=== PATIENT | female | born 1955 | race Caucasian/White ===

== ENCOUNTER → 2018-05-20 07:20 | Outpatient (CLI) | payer OTHER, SELFPAY ==
[2018-05-20 08:29] LABS: Appearance Urine UA CLEAR; Bilirubin Urine UA NEGATIVE (NEGATIVE); Color Urine UA YELLOW; Glucose Urine UA NEGATIVE (Normal); Ketones Urine UA NEGATIVE (NEGATIVE); Leukocyte Esterase Urine UA NEGATIVE (NEGATIVE); Nitrite Urine UA Negative (Negative); Occult Blood Urine UA NEGATIVE (Negative); Protein Urine UA NEGATIVE (Negative); Specific Gravity Urine UA 1.015 (1.000-1.035); Urobilinogen Urine UA 0.2 E.U./dL (0.2)
[2018-05-20 08:50] LABS: Add Manual Diff / Slide Review NO; Eosinophils Percent Auto 4.8 % (2-4); Hematocrit 36.2 % (36-46); Hemoglobin 11.8 g/dL (12.0-16.0); Lymphocytes Percent Auto 37.4 % (25-40); Mean Corpuscular HGB Conc 32.6 % (30-36); Mean Corpuscular Hemoglobin 26.9 PG (26-34); Mean Corpuscular Volume 82.3 fL (80-100); Monocytes Percent Auto 6.3 % (3-14); Neutrophils Absolute Auto 3500 /uL (3000-5900); Neutrophils Percent Auto 50.5 % (50-75); Platelet Count 312 X10^3/uL (150-400); Red Cell Distribution Width 14.6 % (11.6-14.8); White Blood Cell Count 6.9 X10^3/uL (4.5-11.0)
[2018-05-20 09:17] LABS: Alanine Aminotransferase 29 IU/L (9-52); Albumin 4.4 g/dL (3.5-5.0); Albumin Globulin Ratio 1.3 (1.0-2.8); Alkaline Phosphatase 110 U/L (38-126); Aspartate Aminotransferase 28 IU/L (14-36); BUN Creatinine Ratio 17.8 (6-22); Bilirubin Total 0.7 mg/dL (0.2-1.3); Blood Urea Nitrogen 16 mg/dL (7-17); Calcium 9.5 mg/dL (8.4-10.2); Carbon Dioxide 30 mmol/L (22-32); Chloride 100 mmol/L (98-107); Cholesterol 188 mg/dL (140-199); Estimated Glomerular Filt Rate > 60.0 mL/min (>60); Globulin 3.3 g/dL (1.7-4.1); Glucose 128 mg/dL (80-110); HDL Cholesterol 46 mg/dL (40-60); HEMOLYSIS < 15 (0-50); LDL Cholesterol Calculated 120 mg/dL (<100); Sodium 142 mmol/L (137-145); Total Protein 7.7 g/dL (6.3-8.2); Triglycerides 110 mg/dL (35-150)
[2018-05-20 09:35] LABS: Thyroid Stimulating Hormone 2.64 uIU/mL (0.47-4.68)
== END ==
PROVIDERS: PCP Family Medicine; Visit Provider Family Medicine
DX: Z78.0 Asymptomatic menopausal state (principal); Z51.81 Encounter for therapeutic drug level monitoring; F41.8 Other specified anxiety disorders; G25.81 Restless legs syndrome; Z87.19 Personal history of other diseases of the digestive system
CPT/HCPCS: 36415; 80053; 80061; 81003; 84443; 85025

== ENCOUNTER 2018-05-30 17:25 | Emergency (ER) | payer OTHER, SELFPAY ==
[2018-05-30] VITALS (9 sets, daily range): BP systolic 92–130; BP diastolic 63–80; PULSE 97–114; RESP 8–22; TEMP 36.3; O2SAT 97–100
[2018-05-30 18:37] LABS: Add Manual Diff / Slide Review NO; Basophils Percent Auto 0.8 % (0-2); Eosinophils Percent Auto 2.4 % (2-4); Hematocrit 32.7 % (36-46); Hemoglobin 10.9 g/dL (12.0-16.0); Lymphocytes Percent Auto 23.9 % (25-40); Mean Corpuscular HGB Conc 33.3 % (30-36); Mean Corpuscular Volume 81.2 fL (80-100); Monocytes Percent Auto 5.6 % (3-14); Neutrophils Absolute Auto 8900 /uL (3000-5900); Neutrophils Percent Auto 67.3 % (50-75); Platelet Count 353 X10^3/uL (150-400); Red Blood Cell Count 4.03 X10^6/uL (4.0-5.2); Red Cell Distribution Width 14.6 % (11.6-14.8); White Blood Cell Count 13.2 X10^3/uL (4.5-11.0)
[2018-05-30 18:47] LABS: Alanine Aminotransferase 30 IU/L (9-52); Albumin 4.3 g/dL (3.5-5.0); Albumin Globulin Ratio 1.4 (1.0-2.8); Alkaline Phosphatase 86 U/L (38-126); Aspartate Aminotransferase 36 IU/L (14-36); BUN Creatinine Ratio 35.6 (6-22); Bilirubin Total 0.9 mg/dL (0.2-1.3); Blood Urea Nitrogen 32 mg/dL (7-17); Calcium 9.8 mg/dL (8.4-10.2); Carbon Dioxide 28 mmol/L (22-32); Chloride 99 mmol/L (98-107); Estimated Glomerular Filt Rate > 60.0 mL/min (>60); Glucose 167 mg/dL (80-110); HEMOLYSIS 34 (0-50); Lipase 172 U/L (23-300); Potassium 4.2 mmol/L (3.4-5.1); Sodium 139 mmol/L (137-145); Total Protein 7.3 g/dL (6.3-8.2)
[2018-05-30 18:51] LABS: INR 1.2 (0.9-1.3); Prothrombin Time 12.9 SECONDS (10.1-12.7)
--- NOTE | 2018-05-30 18:52 | ED_ITS ---
HPI - GI Bleed General Chief complaint: GI Bleed Stated complaint: VOMITING BLOOD Time Seen by Provider: 05/30/18 18:32 Source: patient Mode of arrival: ambulatory Limitations: no limitations History of Present Illness HPI Narrative: Patient is a 63-year-old female with history of alcoholism and significant NSAID use presenting with hematemesis. She said around 3:00 p.m. this afternoon she felt queasy dizzy lightheaded overall did not feel well. She then started vomiting all large amount of clotted blood. The brought some in a was all over his car. She has been having black tarry stools for the last 1-2 days. She has been sober for the last 2 years. She does have a history of cirrhosis. She takes NSAIDs daily for carpal tunnel. MD complaint: gross hematemesis Related Data Home Medications Medication Instructions Recorded Confirmed [MirapeX] #0 12/27/09 Previous Rx's Medication Instructions Recorded bupropion HCl XL 300 mg 24 hr 300 mg PO QAM #90 tab 05/22/18 tablet, extended release conj estrogen-medroxyprogesterone 1 tab PO DAILY #90 tab 05/22/18 0.625 mg-2.5 mg tablet gabapentin 300 mg capsule 300 mg PO TID #270 cap 05/22/18 hydrochlorothiazide 25 mg tablet 25 mg PO DAILY #90 tab 05/22/18 hydroxyzine HCl 25 mg tablet 25 mg PO DAILY #90 tab 05/22/18 norethindrone acetate-ethinyl 1 tab PO DAILY #84 tab 05/22/18 estradiol 0.5 mg-2.5 mcg tablet ropinirole 1 mg tablet 2 mg PO BEDTIME #180 tab 05/22/18 trazodone 100 mg tablet 200 mg PO BEDTIME #180 tab 05/22/18 Allergies Allergy/AdvReac Type Severity Reaction Status Date / Time No Known Drug Allergies Allergy Verified 05/30/18 17:46 Review of Systems Review of Systems All systems reviewed & are unremarkable except as noted in HPI and below Constitutional Reports fatigue and Denies fever(s) Eyes Denies change in vision, Denies eye discharge, Denies irritation and Denies loss of vision ENT Ears, Nose, Mouth, and Throat: Denies change in voice, Denies neck pain and Denies sore throat Cardiovascular Denies chest pain, Reports lightheadedness and Denies dyspnea on exertion Respiratory Denies cough, Denies dyspnea on exertion and Denies wheezing Gastrointestinal Gastrointestinal: Reports as per HPI Musculoskeletal Denies neck pain Integumentary/Breasts Denies pruritus, Denies erythema, Denies rash and Denies wounds Neurologic Denies loss of vision Endocrine Reports fatigue Allergic/Immunologic Denies wheezing PFSH Medical History Alcoholic cirrhosis (Acute) Alcoholism (Acute) Carpal tunnel syndrome (Acute) Anxiety (Inactive ~2013) Carpal tunnel syndrome (Inactive) Depression (Inactive ~1999) Plantar warts (Inactive ~1979) Restless leg syndrome (Inactive) Shoulder pain (Inactive ~1994) Sleep apnea (Inactive ~2000) Substance abuse (Inactive ~1974) Surgical History H/O section (Inactive) H/O shoulder surgery (Inactive) History of carpal tunnel surgery (Inactive) History of cholecystectomy (Inactive) History of tubal ligation (Inactive) Status post surgery (Inactive 12/27/09) Family History Father Diabetes mellitus Restless leg syndrome History of open heart surgery Mother Pacemaker Heart disease Grandmother Breast cancer Grandfather Diabetes mellitus Grandfather Alcohol abuse Grandmother Old age Social History Smoking Status: Never smoker alcohol intake: former substance use type: does not use Exam Initial Vital Signs Initial Vital Signs: Vital Signs Temperature 97.4 F L 05/30/18 17:43 Pulse Rate 114 H 05/30/18 17:43 Respiratory Rate 16 05/30/18 17:43 Blood Pressure 130/80 H 05/30/18 17:43 Pulse Oximetry 98 05/30/18 17:43 Const General: cooperative and comfortable [facility] Head: normocephalic and atraumatic Mouth: moist mucous membranes Teeth and gingiva: dentition normal Chest Chest: normal inspection of the chest Resp Effort & Inspection: normal respiratory effort, able to speak in complete sentences, no respiratory distress and no use of accessory muscles Auscultation: clear to auscultation bilaterally, no rales, no rhonchi and no wheezes Cardio Rhythm: regular rhythm Heart Sounds: S1 normal and S2 normal GI Inspection: non-distended Palpation: soft, no hepatosplenomegaly, No guarding, No pulsatile mass and No tender Auscultation: normal bowel sounds Rectal Exam: normal sphincter tone and heme positive stool Skin General: no rashes or lesions noted and No jaundice Lesions: no lesions Course Orders Ordered: ED Orders 05/30/18 18:29 Complete Blood Count AUTO DIFF Stat Comprehensive Metabolic Panel Stat Lactate (Lactic Acid) Stat Lipase Stat Partial Thromboplastin Time Stat Prothrombin Time INR Stat Type and Screen Stat Discontinued Medications Octreotide Acetate 500 mcg/ (Sodium Chloride) 101 mls @ 5.05 mls/hr IV CONT JANETT Last Infusion: 05/30/18 23:42 Dose: 25 mcg/hr, 5.05 mls/hr Admin: 05/30/18 19:09 Dose: 25 mcg/hr, 5.05 mls/hr Pantoprazole Sodium 80 mg/ (Sodium Chloride) 100 mls @ 10 mls/hr IV CONT JANETT Last Infusion: 05/30/18 23:40 Dose: 8 mg/hr, 10 mls/hr Admin: 05/30/18 19:09 Dose: 8 mg/hr, 10 mls/hr Lorazepam (Ativan) 0.5 mg IV NOW ONE Stop: 05/30/18 22:31 Last Admin: 05/30/18 22:33 Dose: 0.5 mg Octreotide Acetate (Sandostatin) 50 mcg IV NOW ONE Stop: 05/30/18 18:43 Last Admin: 05/30/18 19:16 Dose: 50 mcg Ondansetron HCl (Zofran) 4 mg IV NOW ONE Stop: 05/30/18 18:43 Last Admin: 05/30/18 19:09 Dose: 4 mg Pantoprazole Sodium (Protonix) 40 mg IV NOW ONE Stop: 05/30/18 18:43 Last Admin: 05/30/18 19:09 Dose: 40 mg Consultations Consultation #1: Lisandro Luis, has been updated patient's symptoms and test results. He has made arrangements for patient to be transferred to [facility]. Dr. Rosales accepting at [facility] Time: 20:20 Vital Signs - 8 hr 05/30/18 18:33 05/30/18 19:30 05/30/18 20:15 Pulse Rate 108 H 104 H 97 H Respiratory Rate 14 22 16 Blood Pressure [Left Arm] 114/71 127/77 H 125/67 H Pulse Oximetry 99 100 100 05/30/18 20:45 05/30/18 21:10 05/30/18 21:30 Pulse Rate 102 H 106 H 104 H Respiratory Rate 8 L 18 17 Blood Pressure [Left Arm] 116/73 103/68 92/71 Pulse Oximetry 97 98 97 05/30/18 22:00 05/30/18 22:30 Pulse Rate 102 H 105 H Respiratory Rate 20 16 Blood Pressure [Left Arm] 122/63 H 125/78 H Pulse Oximetry 98 99 MDM - GI Bleed Lab Data Result diagrams: 05/30/18 18:29 05/30/18 18:29 Lab Results 05/30/18 05/30/18 05/30/18 Range/Units 18:29 18:29 18:29 WBC 13.2 H (4.5-11.0) X10^3/uL RBC 4.03 (4.0-5.2) X10^6/uL Hgb 10.9 L (12.0-16.0) g/dL Hct 32.7 L (36-46) % MCV 81.2 (80-100) fL MCH 27.0 (26-34) PG MCHC 33.3 (30-36) % RDW 14.6 (11.6-14.8) % Plt Count 353 (150-400) X10^3/uL Neut % (Auto) 67.3 (50-75) % Lymph % (Auto) 23.9 L (25-40) % Falls % (Auto) 5.6 (3-14) % Eos % (Auto) 2.4 (2-4) % Baso % (Auto) 0.8 (0-2) % Neut # (Auto) 8900 H (3148-0787) /uL PT (10.1-12.7) SECONDS INR (0.9-1.3) APTT (26.4-36.2) SECONDS Sodium 139 (137-145) mmol/L Potassium 4.2 (3.4-5.1) mmol/L Chloride 99 (98-107) mmol/L Carbon Dioxide 28 (22-32) mmol/L BUN 32 H (7-17) mg/dL Creatinine 0.90 (0.52-1.04) mg/dL Estimated GFR > 60.0 (>60) mL/min BUN/Creatinine Ratio 35.6 H (6-22) Glucose 167 H (80-110) mg/dL Lactate (0.7-2.1) mmol/L Calcium 9.8 (8.4-10.2) mg/dL Total Bilirubin 0.9 (0.2-1.3) mg/dL AST 36 (14-36) IU/L ALT 30 (9-52) IU/L Alkaline Phosphatase 86 (38-126) U/L Total Protein 7.3 (6.3-8.2) g/dL Albumin 4.3 (3.5-5.0) g/dL Globulin 3.0 (1.7-4.1) g/dL Albumin/Globulin Ratio 1.4 (1.0-2.8) Lipase 172 (23-300) U/L Blood Type O Positive Antibody Screen Negative 05/30/18 05/30/18 Range/Units 18:29 18:29 WBC (4.5-11.0) X10^3/uL RBC (4.0-5.2) X10^6/uL Hgb (12.0-16.0) g/dL Hct (36-46) % MCV (80-100) fL MCH (26-34) PG MCHC (30-36) % RDW (11.6-14.8) % Plt Count (150-400) X10^3/uL Neut % (Auto) (50-75) % Lymph % (Auto) (25-40) % Falls % (Auto) (3-14) % Eos % (Auto) (2-4) % Baso % (Auto) (0-2) % Neut # (Auto) (3831-6466) /uL PT 12.9 H (10.1-12.7) SECONDS INR 1.2 (0.9-1.3) APTT 26 L (26.4-36.2) SECONDS Sodium (137-145) mmol/L Potassium (3.4-5.1) mmol/L Chloride (98-107) mmol/L Carbon Dioxide (22-32) mmol/L BUN (7-17) mg/dL Creatinine (0.52-1.04) mg/dL Estimated GFR (>60) mL/min BUN/Creatinine Ratio (6-22) Glucose (80-110) mg/dL Lactate 1.4 (0.7-2.1) mmol/L Calcium (8.4-10.2) mg/dL Total Bilirubin (0.2-1.3) mg/dL AST (14-36) IU/L ALT (9-52) IU/L Alkaline Phosphatase (38-126) U/L Total Protein (6.3-8.2) g/dL Albumin (3.5-5.0) g/dL Globulin (1.7-4.1) g/dL Albumin/Globulin Ratio (1.0-2.8) Lipase (23-300) U/L Blood Type Antibody Screen MDM Narrative Medical decision making narrative: Previous hemoglobin on 05/20/2018 11.8 and hematocrit 36.2. Today slightly decreased 10.9 and 32.7 respectively. She has no further episodes of vomiting in the ED. She remained slightly tachycardic blood pressure has remained stable. She is being transferred to [facility] unable to fix variceal bleeding if that is what this is. However due to the improvement of vomiting I suspect that this is probably more from NSAIDs. She also has elevated BUN compared to creatinine suggestive of upper GI bleed. Discharge Plan Departure Patient Disposition: [facility] Clinical Impression: Acute GI bleeding Discharge Date/Time: 05/30/18 23:06 Interventions: ED Discharge Assessment Last Done: 05/30/18 23:06 Prescriptions: No Action bupropion HCl 300 mg tablet extended release 24 hr 300 mg PO QAM Qty: 90 RF: 3 norethindrone ac-eth estradiol 0.5-2.5 mg-mcg tablet 1 tab PO DAILY Qty: 84 RF: 1 gabapentin [Neurontin] 300 mg capsule 300 mg PO TID Qty: 270 RF: 3 hydrochlorothiazide 25 mg tablet 25 mg PO DAILY Qty: 90 RF: 3 hydroxyzine HCl 25 mg tablet 25 mg PO DAILY Qty: 90 RF: 3 ropinirole 1 mg tablet 2 mg PO BEDTIME Qty: 180 RF: 3 trazodone 100 mg tablet 200 mg PO BEDTIME Qty: 180 RF: 3 conj estrog-medroxyprogest felipe [Prempro] 0.625-2.5 mg tablet 1 tab PO DAILY Qty: 90 RF: 0 [MirapeX] Qty: 0 RF: 0
[2018-05-30 18:54] LABS: Lactate (Lactic Acid) 1.4 mmol/L (0.7-2.1); PTT Partial Thromboplastin Tim 26 SECONDS (26.4-36.2)
[2018-05-30] MEDS: ONDANSETRON 4 MG/2 ML INJ IV (19:09)
[2018-05-30] MEDS: OCTREOTIDE 500 MCG in SODIUM CHLORIDE 0.9% 100 ML 5.05 ML IV (19:09)
[2018-05-30] MEDS: PANTOPRAZOLE 80 MG in SODIUM CHLORIDE 0.9% 100 ML 10 ML IV (19:09)
[2018-05-30] MEDS: PANTOPRAZOLE 40 MG VIAL IV (19:09)
[2018-05-30] MEDS: OCTREOTIDE 100 MCG/ML VIAL 50 MCG IV (19:16)
[2018-05-30] MEDS: LORazepam 2 MG/ML SYRINGE 0.5 MG IV (22:33)
== END 2018-05-30 23:06 | disposition short-term general hospital (02) ==
PROVIDERS: Emergency Medicine; Emergency Provider Emergency Medicine; Family Provider Family Medicine; PCP Family Medicine
DX: K92.2 Gastrointestinal hemorrhage, unspecified (principal)
CPT/HCPCS: 36591; 80053; 82272; 83605; 83690; 85025; 85610; 85730; 86850; 86900; 86901; 96365; 96366; 96368; 96375; 99285; C9113; J2060; J2354; J2405

== ENCOUNTER → 2018-10-25 08:24 | Outpatient (CLI) | payer OTHER, SELFPAY ==
[2018-10-25 09:18] LABS: Add Manual Diff / Slide Review NO; Basophils Percent Auto 1.3 % (0-2); Eosinophils Percent Auto 3.5 % (2-4); Hematocrit 37.8 % (36-46); Hemoglobin 12.3 g/dL (12.0-16.0); Lymphocytes Percent Auto 44.1 % (25-40); Mean Corpuscular HGB Conc 32.6 % (30-36); Mean Corpuscular Hemoglobin 26.6 PG (26-34); Mean Corpuscular Volume 81.6 fL (80-100); Monocytes Percent Auto 6.5 % (3-14); Neutrophils Absolute Auto 2500 /uL (1500-7000); Neutrophils Percent Auto 44.6 % (50-75); Platelet Count 386 X10^3/uL (150-400); Red Blood Cell Count 4.63 X10^6/uL (4.0-5.2); Red Cell Distribution Width 17.1 % (11.6-14.8); White Blood Cell Count 5.5 X10^3/uL (4.5-11.0)
[2018-10-25 09:30] LABS: Alanine Aminotransferase 30 IU/L (9-52); Albumin 4.8 g/dL (3.5-5.0); Albumin Globulin Ratio 1.4 (1.0-2.8); Alkaline Phosphatase 96 U/L (38-126); Aspartate Aminotransferase 32 IU/L (14-36); BUN Creatinine Ratio 12.5 (6-22); Blood Urea Nitrogen 10 mg/dL (7-17); Carbon Dioxide 31 mmol/L (22-32); Chloride 101 mmol/L (98-107); Estimated Glomerular Filt Rate > 60.0 mL/min (>60); Globulin 3.5 g/dL (1.7-4.1); Glucose 122 mg/dL (80-110); HEMOLYSIS < 15 (0-50); Hemoglobin A1C% w Est Avg Glu 5.8 % (4.0-6.0); Potassium 3.8 mmol/L (3.4-5.1); Sodium 147 mmol/L (137-145); Total Protein 8.3 g/dL (6.3-8.2)
[2018-10-25 10:02] LABS: Ferritin 64.8 ng/mL (11.1-264)
[2018-10-25 11:35] LABS: HEMOLYSIS < 15 (0-50); Iron 79 ug/dL (37-170)
[2018-10-25 11:48] LABS: Percent Iron Saturation 29 % (15-50); Total Iron Binding Capacity 272 ug/dL (265-497); Transferrin 213 mg/dL (206-381)
== END ==
PROVIDERS: PCP Family Medicine; Visit Provider Family Medicine
DX: R73.9 Hyperglycemia, unspecified (principal); D50.0 Iron deficiency anemia secondary to blood loss (chronic); E61.1 Iron deficiency
CPT/HCPCS: 36415; 80053; 82728; 83036; 83540; 83550; 85025

== ENCOUNTER → 2019-02-26 08:13 | Outpatient (CLI) | payer OTHER, SELFPAY ==
--- NOTE | 2019-02-26 08:16 | DI.RAD.S_ITS ---
PROCEDURE: XR KNEE LT 3V INDICATIONS: left knee pain TECHNIQUE: 3 views of the knee were acquired. COMPARISON: None. FINDINGS: Bones: No fractures or dislocations. No suspicious bony lesions. Soft tissues: No joint effusion. No suspicious soft tissue calcifications. IMPRESSION: Minimal medial compartment joint space narrowing, consistent with a small degree of osteoarthritis in that area. Note is also made of distal quadriceps tendon insertion spurring on the superior margin of the patella. Dictated by: Elliot Grier M.D. on 02/26/2019 at 10:11 Approved by: Elliot Grier M.D. on 02/26/2019 at 10:12
--- NOTE | 2019-02-26 08:16 | DI.RAD.S_ITS ---
PROCEDURE: XR HIP W PEL IF DONE LT 2V INDICATIONS: hip pain TECHNIQUE: AP pelvis with lateral view(s) of the left hip(s). COMPARISON: [facility], , CT ABDOMEN W/WO CONTRAST, 12/31/2003, 9:07. FINDINGS: Bones: No fractures or dislocations but there is moderate bilateral hip joint osteoarthritis greater on the left than the right with relatively prominent osteophytic spurring at the lateral border of the acetabulum.. Pelvic ring appears intact. No suspicious bony lesions. Soft tissues: The visualized bowel gas pattern is normal. No suspicious soft tissue calcifications. IMPRESSION: No acute trauma found that there is moderate bilateral hip joint osteoarthritis with asymmetric prominence on the left. Dictated by: Elliot Grier M.D. on 02/26/2019 at 10:10 Approved by: Elliot Grier M.D. on 02/26/2019 at 10:11
== END ==
PROVIDERS: PCP Family Medicine; Visit Provider Family Medicine
DX: M25.562 Pain in left knee (principal); M25.552 Pain in left hip; M16.0 Bilateral primary osteoarthritis of hip
CPT/HCPCS: 73502; 73562

== ENCOUNTER 2019-10-08 12:46 | Emergency (ER) | payer OTHER, SELFPAY ==
[2019-10-08 12:51] VITALS: BP 149/77; PULSE 62; RESP 15; TEMP 36.4; O2SAT 100; BMI 32.4
[2019-10-08 13:55] VITALS: BP 139/69; PULSE 54; RESP 14; O2SAT 99
[2019-10-08 14:30] VITALS: BP 131/67; PULSE 57; RESP 17; O2SAT 100
[2019-10-08 14:53] LABS: Add Manual Diff / Slide Review NO; Basophils Absolute Auto 100 /uL (0-100); Eosinophils Absolute Auto 300 /uL (0-450); Eosinophils Percent Auto 4.7 % (2-4); Hemoglobin 10.8 g/dL (12.0-16.0); Lymphocytes Absolute Auto 2600 /uL (1100-4500); Mean Corpuscular HGB Conc 32.7 % (30-36); Mean Corpuscular Hemoglobin 27.8 PG (26-34); Mean Corpuscular Volume 85.1 fL (80-100); Monocytes Absolute Auto 400 /uL (0-900); Neutrophils Absolute Auto 3100 /uL (1500-7000); Neutrophils Percent Auto 48.3 % (50-75); Platelet Count 319 X10^3/uL (150-400); Red Blood Cell Count 3.88 X10^6/uL (4.0-5.2); White Blood Cell Count 6.5 X10^3/uL (4.5-11.0)
[2019-10-08 14:58] LABS: Blood Urea Nitrogen 12 mg/dL (7-17); Calcium 9.3 mg/dL (8.4-10.2); Carbon Dioxide 28 mmol/L (22-32); Chloride 107 mmol/L (98-107); Estimated Glomerular Filt Rate > 60.0 mL/min (>60); Glucose 85 mg/dL (80-110); HEMOLYSIS < 15 (0-50); Potassium 3.7 mmol/L (3.4-5.1); Sodium 140 mmol/L (137-145)
[2019-10-08 15:00] VITALS: BP 128/97; PULSE 54; RESP 16; O2SAT 100
[2019-10-08 15:10] LABS: Troponin I < 0.012 ng/mL (0.01-0.034)
--- NOTE | 2019-10-08 16:02 | DI.CT.S_ITS ---
PROCEDURE: CT HEAD/BRAIN WO CON INDICATIONS: vertigo TECHNIQUE: Noncontrast 4.5 mm thick angled axial sections acquired from the foramen magnum to the vertex, with coronal and sagittal reformats. For radiation dose reduction, the following was used: automated exposure control, adjustment of mA and/or kV according to patient size. COMPARISON: [facility], CT, HEAD WITHOUT CONTRAST, 09/10/2008, 17:34. FINDINGS: Image quality: Excellent. CSF spaces: Basal cisterns are patent. No extra-axial fluid collections. Ventricles are normal in size and shape. Brain: No midline shift. No intracranial masses or hemorrhage. Mccartney-white matter interface is normal. Skull and face: Calvarium and visualized facial bones are intact, without suspicious lesions. Sinuses: Visualized sinuses and mastoids are clear. IMPRESSION: Unremarkable head CT. No evidence of acute stroke, hemorrhage, or mass. Dictated by: Darvin Ocasio M.D. on 10/08/2019 at 16:31 Approved by: Darvin Ocasio M.D. on 10/08/2019 at 16:32
[2019-10-08] MEDS: SODIUM CHLORIDE 0.9% 1,000 ML 1000 ML IV (16:26)
[2019-10-08] MEDS: MECLIZINE HCL 12.5 MG TABLET 50 MG PO (16:26)
--- NOTE | 2019-10-08 17:15 | ED.DIZZY ---
HPI - Dizziness General Chief Complaint: Dizziness Stated Complaint: dizzy spells,sent from [facility] Time Seen by Provider: 10/08/19 13:42 Source: patient Mode of arrival: Ambulatory History of Present Illness HPI Narrative: Patient comes emergency department complaining of intermittent vertigo, mainly when she bends over or moves her head in certain directions, for the last several days. Patient has had slight nausea occasionally but denies vomiting. no chest pain or shortness breath. No headache. No focal neurologic deficits. No visual changes. Patient states that she has never had vertigo before. She denies lightheadedness or near-syncope. No other complaints this time. She states that right now, symptoms are not too bad, and she has been able to ambulate. Related Data Home Medications Medication Instructions Recorded Confirmed ropinirole 3 - 4 mg PO BEDTIME 10/08/19 10/08/19 Previous Rx's Medication Instructions Recorded bupropion HCl 150 mg 24 hr tablet, 450 mg PO QAM #270 tab 04/03/19 extended release gabapentin 300 mg capsule 300 mg PO TID #270 cap 04/29/19 trazodone 100 mg tablet 200 mg PO BEDTIME #180 tab 04/29/19 hydroxyzine HCl 25 mg tablet 75 mg PO BEDTIME #270 tab 05/01/19 hydrochlorothiazide 25 mg tablet 25 mg PO DAILY #90 tab 06/30/19 meloxicam 15 mg tablet See Rx Instructions PO DAILY #90 07/04/19 tab meclizine 25 mg PO TID PRN #20 tab 10/08/19 Allergies Allergy/AdvReac Type Severity Reaction Status Date / Time No Known Drug Allergies Allergy Verified 10/08/19 12:51 Review of Systems Constitutional Constitutional: Denies chills, Denies fatigue, Denies fever(s), Denies frequent falls, Denies lethargy and Denies weakness Eyes Eyes: Denies change in vision, Denies eye discharge, Denies irritation and Denies loss of vision ENT Ears, Nose, Mouth, and Throat: Denies change in voice, Reports dizziness, Denies neck pain, Denies sore throat and Denies throat swelling Cardiovascular Cardiovascular: Denies chest pain, Denies irregular heart rhythm, Denies lightheadedness, Denies palpitations, Denies dyspnea, Denies dyspnea on exertion and Denies orthopnea Respiratory Respiratory: Denies cough, Denies dyspnea, Denies dyspnea on exertion and Denies wheezing Gastrointestinal Gastrointestinal: Denies abdominal pain, Denies change in bowel habits, Denies diarrhea, Denies nausea and Denies vomiting Genitourinary Genitourinary: Denies hematuria, Denies flank pain, Denies urinary incontinence and Denies urinary urgency Musculoskeletal Musculoskeletal: Denies back pain, Denies muscle weakness, Denies neck pain, Denies numbness and Denies tingling Integumentary/Breasts Skin/Breast: Denies pruritus, Denies erythema, Denies rash and Denies wounds Neurologic Neurologic: Denies behavioral changes, Denies confusion, Reports dizziness, Denies frequent falls, Denies loss of vision, Denies numbness, Denies tingling and Denies weakness Psychiatric Psychiatric: Denies anxiety, Denies behavioral changes, Denies confusion, Denies depression, Denies homicidal ideation and Denies suicidal ideation Endocrine Endocrine: Denies fatigue, Denies flushing and Denies palpitations Hematologic/Lymphatic Hematologic/Lymphatic: Denies easy bruising Allergic/Immunologic Allergic/Immunologic: Denies urticaria, Denies throat swelling and Denies wheezing Patient History Medical History Alcoholic cirrhosis (Chronic) Alcoholism (Chronic) Anxiety (Inactive ~2013) Anxiety (Chronic Unknown) Carpal tunnel syndrome (Inactive) Carpal tunnel syndrome (Chronic ~2011) Cervical radiculopathy due to trauma (Resolved Unknown) Chicken pox (Resolved ~1961) Depression (Inactive ~1999) Depression (Chronic ~1989) Gastric ulcer (Chronic ~2018) Hypertension (Chronic Unknown) Insomnia (Chronic Unknown) Mumps (Resolved ~1964) Plantar warts (Inactive ~1979) Restless leg syndrome (Inactive) Restless leg syndrome (Chronic Unknown) Shoulder pain (Inactive ~1994) Sleep apnea (Inactive ~2000) Substance abuse (Inactive ~1974) Surgical History Anesthesia (Resolved) H/O section (Inactive) H/O shoulder surgery (Inactive) History of carpal tunnel release (Resolved 2014) History of carpal tunnel surgery (Inactive) History of cholecystectomy (Inactive) History of tubal ligation (Inactive) Hx of section (Resolved Unknown) Hx of cholecystectomy (Resolved 2013) Hx of shoulder surgery (Resolved ~2012) Hx of shoulder surgery (Resolved) Status post surgery (Inactive 12/27/09) Family History Father Diabetes mellitus Restless leg syndrome History of open heart surgery Mother Pacemaker Heart disease Grandmother Breast cancer Grandfather Diabetes mellitus Grandfather Alcohol abuse Grandmother Old age Social History marital status: number of children: 2 household members: spouse lives independently: Yes pets and animals: Yes education level: high school occupational status: employed ([employer]) sundar/restorationism: Uatsdin seatbelt use: always water heater temp set < 120 deg: Yes working smoke detector in home: Yes fire extinguisher in home: Yes carbon monox detector in home: Yes firearms in home: Yes Smoking Status: Never smoker second hand exposure: No alcohol intake: former substance use type: does not use during the past year weight has: remained stable well-balanced diet: about half the time daily servings fruits/ve-4 caffeine: Yes eating out: 1-3 times/week Type(s) of exercise: walking and additional (gardening) frequency: 1-2 times per week duration: other (varies) alcohol intake frequency: 0-2 drinks per day Substance Use Type: does not use Exam Initial Vital Signs Initial Vital Signs: Vital Signs Temperature 97.6 F 10/08/19 12:51 Pulse Rate 62 10/08/19 12:51 Respiratory Rate 15 10/08/19 12:51 Blood Pressure 149/77 H 10/08/19 12:51 Pulse Oximetry 100 10/08/19 12:51 Const General: cooperative and well developed Nutritional Appearance: well nourished Orientation: alert, awake, oriented x3 and not confused [facility] Head: normocephalic and atraumatic Ears: external ears normal Nose: external nose normal and No nasal discharge Face and sinus: face symmetric and No dry mucous membranes Mouth: oral mucosae normal and moist mucous membranes Teeth and gingiva: dentition normal Eyes General: appearance normal, both eyes and all related structures Eyelids: eyelids normal Conjunctivae: conjunctivae normal Sclera: sclerae normal Pupils: PERRL EOM: EOM intact bilaterally Other: No nystagmus Neck Neck: normal visual inspection, trachea midline, No lymphadenopathy, No midline deformity and No JVD Lymphatic: No lymphedema Chest Chest: normal inspection of the chest Resp Effort & Inspection: normal respiratory effort, able to speak in complete sentences, no respiratory distress and no use of accessory muscles Auscultation: clear to auscultation bilaterally, no rales, no rhonchi and no wheezes Cardio Rate: regular rate Rhythm: regular rhythm Heart Sounds: no click, no gallops, no murmurs and no rubs Pulses: normal peripheral pulses GI Inspection: non-distended Palpation: soft, no hepatosplenomegaly, No guarding, No pulsatile mass and No tender Back/Spine/Pelvis Back: No CVA tenderness Cervical Spine: cervical ROM normal and No pain with cervical ROM Thoracic/Lumbar Spine: thoracic and lumbar spine normal to inspection Skin General: no rashes or lesions noted, No jaundice and No petechiae Neuro General: alert, oriented x3, gait normal and no focal motor deficits Speech: speech normal Extrem General: full ROM, no clubbing, cyanosis or edema, no pedal edema and no calf tenderness Psych Appearance: well kempt Mental Status: mental status grossly normal Attitude: cooperative Thought Content: normal and suicidality Judgment: judgment good Course Course Course Narrative: The patient was not symptomatic in the emergency department, and was able to ambulate without difficulty to and from the bathroom. She was worked up with labs and CT of the head, which were unremarkable. She was given a dose of meclizine for symptomatic prevention in the emergency department. The patient's vertigo was very much positional and episodic in nature, and given this and the negative head CT, I felt that the etiology was peripheral and not central. I did discuss this with the patient and her spouse, and that this will be a self-limited condition. The patient is stable for discharge home. We have discussed home management of symptoms, as well as the usual indications for return. Orders Ordered: Discontinued Medications Sodium Chloride (Normal Saline 0.9%) 1,000 mls @ 1,000 mls/hr IV BOLUS ONE Stop: 10/08/19 17:02 Last Infusion: 10/08/19 17:50 Dose: 0 mls/hr Documented by: Admin: 10/08/19 16:26 Dose: 1,000 mls/hr Documented by: MARCELL Meclizine HCl (Antivert) 50 mg PO NOW ONE Stop: 10/08/19 16:04 Last Admin: 10/08/19 16:26 Dose: 50 mg Documented by: MARCELL Vital Signs Vital signs: Vital Signs - 8 hr 10/08/19 12:51 10/08/19 13:55 10/08/19 14:30 Temperature 97.6 F Pulse Rate 62 54 L 57 L Respiratory Rate 15 14 17 Blood Pressure 149/77 H Blood Pressure [Right Arm] 139/69 131/67 Pulse Oximetry 100 99 100 10/08/19 15:00 Temperature Pulse Rate 54 L Respiratory Rate 16 Blood Pressure Blood Pressure [Right Arm] 128/97 H Pulse Oximetry 100 MDM - Dizziness Medical Records Attestation: I reviewed the patient's medical records. Lab Data Attestation: I reviewed the patient's lab results. Result diagrams: 10/08/19 14:02 10/08/19 14:02 Labs: Lab Results 10/08/19 10/08/19 Range/Units 14:02 14:02 WBC 6.5 (4.5-11.0) X10^3/uL RBC 3.88 L (4.0-5.2) X10^6/uL Hgb 10.8 L (12.0-16.0) g/dL Hct 33.0 L (36-46) % MCV 85.1 (80-100) fL MCH 27.8 (26-34) PG MCHC 32.7 (30-36) % RDW 15.0 H (11.6-14.8) % Plt Count 319 (150-400) X10^3/uL Neut % (Auto) 48.3 L (50-75) % Lymph % (Auto) 40.0 (25-40) % Montague % (Auto) 6.0 (3-14) % Eos % (Auto) 4.7 H (2-4) % Baso % (Auto) 1.0 (0-2) % Neut # (Auto) 3100 (0996-7115) /uL Lymph # (Auto) 2600 (4789-4330) /uL [place] # (Auto) 400 (0-900) /uL Eos # (Auto) 300 (0-450) /uL Baso # (Auto) 100 (0-100) /uL Sodium 140 (137-145) mmol/L Potassium 3.7 (3.4-5.1) mmol/L Chloride 107 (98-107) mmol/L Carbon Dioxide 28 (22-32) mmol/L BUN 12 (7-17) mg/dL Creatinine 0.80 (0.52-1.04) mg/dL Estimated GFR > 60.0 (>60) mL/min BUN/Creatinine Ratio 15.0 (6-22) Glucose 85 (80-110) mg/dL Calcium 9.3 (8.4-10.2) mg/dL Troponin I < 0.012 (0.01-0.034) ng/mL Urine Dip Bedside Urine Glucose Negative Bedside Urine Bilirubin - Negative Bedside Urine Ketone - Negative Urine Specific Bath 1.010 Bedside Urine pH 6.0 Bedside Urine Protein - Negative Bedside Urine Urobilinogen - Negative Bedside Urine Nitrite - Negative Bedside Urine Leukocytes - Negative Esterase Imaging Data CT scan - head: Radiologist's impression: PROCEDURE: CT HEAD/BRAIN WO CON INDICATIONS: vertigo TECHNIQUE: Noncontrast 4.5 mm thick angled axial sections acquired from the foramen magnum to the vertex, with coronal and sagittal reformats. For radiation dose reduction, the following was used: automated exposure control, adjustment of mA and/or kV according to patient size. COMPARISON: [facility], CT, HEAD WITHOUT CONTRAST, 09/10/2008, 17:34. FINDINGS: Image quality: Excellent. CSF spaces: Basal cisterns are patent. No extra-axial fluid collections. Ventricles are normal in size and shape. Brain: No midline shift. No intracranial masses or hemorrhage. Mccartney-white matter interface is normal. Skull and face: Calvarium and visualized facial bones are intact, without suspicious lesions. Sinuses: Visualized sinuses and mastoids are clear. IMPRESSION: Unremarkable head CT. No evidence of acute stroke, hemorrhage, or mass. Dictated by: Darvin Ocasio M.D. on 10/08/2019 at 16:31 Approved by: Darvin Ocasio M.D. on 10/08/2019 at 16:32 Discharge Plan Departure Patient Disposition: Home Clinical Impression: Vertigo Discharge Date/Time: 10/08/19 17:51 Instructions: DI for Vertigo Activity Restrictions/Additional Instructions: Your labs and CT scan look good. There is no evidence of a serious or emergent condition causing your dizziness. Most positional dizziness comes from the inner ear, and will resolve on its own, though other episodes may occur your later on. Please take the meclizine, as needed for dizziness. The prescription for this has been electronically transmitted to [facility]. Follow up with your primary care physician if you're not feeling better in the next week. Prescriptions: New meclizine 25 mg tablet 25 mg PO TID PRN (Reason: dizziness) Qty: 20 RF: 0 No Action bupropion HCl 150 mg tablet extended release 24 hr 450 mg PO QAM Qty: 270 RF: 3 gabapentin [Neurontin] 300 mg capsule 300 mg PO TID Qty: 270 RF: 3 trazodone 100 mg tablet 200 mg PO BEDTIME Qty: 180 RF: 3 hydroxyzine HCl 25 mg tablet 75 mg PO BEDTIME Qty: 270 RF: 1 hydrochlorothiazide 25 mg tablet 25 mg PO DAILY Qty: 90 RF: 3 meloxicam 15 mg tablet See Rx Instructions PO DAILY Qty: 90 RF: 1 ropinirole 1 mg tablet 3 - 4 mg PO BEDTIME RF: 0 Referrals: Mahnaz Marshall DO [Primary Care Provider] -
[2019-10-08 17:50] VITALS: BP 150/81
== END 2019-10-08 17:51 | disposition home or self-care (01) ==
PROVIDERS: Emergency Provider Emergency Medicine; PCP Family Medicine
DX: R42 Dizziness and giddiness (principal)
CPT/HCPCS: 70450; 80048; 81003; 84484; 85025; 99283; 99284

== ENCOUNTER → 2020-05-04 11:09 | Outpatient (CLI) | payer MEDICARE, OTHER, SELFPAY ==
[2020-05-04 11:54] LABS: Add Manual Diff / Slide Review NO; Basophils Absolute Auto 100 /uL (0-100); Basophils Percent Auto 0.9 % (0-2); Eosinophils Absolute Auto 600 /uL (0-450); Eosinophils Percent Auto 9.3 % (2-4); Hematocrit 31.9 % (36-46); Hemoglobin 10.7 g/dL (12.0-16.0); Lymphocytes Absolute Auto 2300 /uL (1100-4500); Lymphocytes Percent Auto 38.3 % (25-40); Mean Corpuscular HGB Conc 33.6 % (30-36); Mean Corpuscular Hemoglobin 28.4 PG (26-34); Mean Corpuscular Volume 84.5 fL (80-100); Monocytes Absolute Auto 400 /uL (0-900); Monocytes Percent Auto 7.1 % (3-14); Neutrophils Absolute Auto 2700 /uL (1500-7000); Neutrophils Percent Auto 44.4 % (50-75); Platelet Count 307 X10^3/uL (150-400); Red Blood Cell Count 3.77 X10^6/uL (4.0-5.2); Red Cell Distribution Width 14.9 % (11.6-14.8); White Blood Cell Count 6.1 X10^3/uL (4.5-11.0)
[2020-05-04 12:32] LABS: Carbon Dioxide 27 mmol/L (22-32); Chloride 105 mmol/L (98-107); HEMOLYSIS < 15 (0-50); Potassium 4.7 mmol/L (3.4-5.1); Sodium 138 mmol/L (137-145)
== END ==
PROVIDERS: PCP Family Medicine; Referring Provider Orthopaedic Surgery; Visit Provider Orthopaedic Surgery
DX: Z01.818 Encounter for other preprocedural examination (principal); Z01.812 Encounter for preprocedural laboratory examination
CPT/HCPCS: 36415; 80051; 85025; 93005

== ENCOUNTER → 2020-05-16 13:48 | Outpatient (CLI) | payer MEDICARE, OTHER, SELFPAY ==
[2020-05-17 07:58] LABS: COVID19 Sendout Not Detected (Not Detect)
== END ==
PROVIDERS: PCP Family Medicine; Visit Provider Physician Assistant
DX: Z01.818 Encounter for other preprocedural examination (principal)
CPT/HCPCS: 87635

== ENCOUNTER 2020-05-19 11:10 | Observation (INO) | payer MEDICARE, OTHER, SELFPAY ==
[2020-05-12 12:38] VITALS: BMI 33.7
[2020-05-19] VITALS (13 sets, daily range): BP systolic 97–131; BP diastolic 49–74; PULSE 52–73; RESP 7–16; TEMP 35.3–36.4; O2SAT 98–100; BMI 33.7
--- NOTE | 2020-05-19 10:15 | DI.RAD.S_ITS ---
PROCEDURE: XR PELVIS 1-2V INDICATIONS: POST OPERATIVE TOTAL HIP TECHNIQUE: 1 view of the lower pelvis acquired. COMPARISON: [facility], CR, XR HIP W PEL IF DONE LT 2V, 02/26/2019, 8:21. FINDINGS: Bones: Patient is status post Left hip arthroplasty, with hardware components in expected positions. The hip joint appears congruent. The visualized bony structures appear intact. Soft tissues: Overlying postoperative changes are noted. No suspicious soft tissue densities. IMPRESSION: Expected postoperative appearance of left hip arthroplasty. Dictated by: J Luis Alan [facility] Interpreted: Troy Kauffman MD on 05/19/2020 at 15:06 Approved by: Troy Kauffman M.D. on 05/19/2020 at 16:35
[2020-05-19] MEDS: LACTATED RINGERS 1,000 ML 42 ML IV (11:49)
--- NOTE | 2020-05-19 12:06 | PM.HP.1 ---
History of Present Illness History of Present Illness Date Patient Seen: 05/19/20 Time Patient Seen: 12:07 Chief complaint: 78060 Left Total Hip Arthroplasty *OPB* Narrative: 65-year-old female admitted for planned elective left total hip arthroplasty for degenerative joint disease. Patient History Medical History Alcoholic cirrhosis (Chronic) Alcoholism (Chronic) Anxiety (Inactive ~2013) Bradycardia (Acute) Carpal tunnel syndrome (Chronic ~2011) Cervical radiculopathy due to trauma (Resolved Unknown) Chicken pox (Resolved ~1961) Depression (Chronic ~1989) Gastric ulcer (Chronic ~2017) Hypertension (Chronic Unknown) Insomnia (Chronic Unknown) Mumps (Resolved ~1964) Osteoarthritis (Acute) Plantar warts (Inactive ~1979) Pneumonia (Acute) Restless leg syndrome (Chronic Unknown) Shoulder pain (Inactive ~1994) Sleep apnea (Inactive ~2000) Substance abuse (Inactive ~1974) Surgical History H/O shoulder surgery (Inactive 2012) History of cholecystectomy (Inactive 2013) History of tubal ligation (Inactive) Hx of section (Resolved Unknown) Hx of LASIK (Acute 1999) Hx of shoulder surgery (Resolved) Family & Social History Family History Father Diabetes mellitus Restless leg syndrome History of open heart surgery Mother Pacemaker Heart disease Grandmother Breast cancer Grandfather Diabetes mellitus Grandfather Alcohol abuse Grandmother Old age Social History: household members spouse Prior Living Arrangements House lives independently Yes Safety & Behavioral: Feels Safe in Current Yes Environment Been Physically Hurt or No Threatened By a Person Suicidal Ideation Description None Suicide Plan Description No Plan Tobacco & Substance use: Smoking Status Never smoker alcohol intake former alcohol intake frequency 0-2 drinks per day Substance Use Type does not use Meds Home Medications and Allergies Home Medications Medication Instructions Recorded Confirmed Type meclizine 25 mg PO TID PRN #20 tab 10/08/19 05/12/20 Rx hydrochlorothiazide 25 mg tablet 25 mg PO DAILY #90 tab 02/06/20 05/12/20 Rx meloxicam 15 mg tablet See Rx Instructions PO DAILY #90 02/06/20 05/12/20 Rx tab gabapentin 300 mg capsule 300 mg PO TID #270 cap 02/17/20 05/19/20 Rx trazodone 100 mg tablet 200 mg PO BEDTIME #180 tab 02/17/20 05/19/20 Rx acetaminophen 1,300 mg PO BID 05/12/20 05/19/20 History bupropion HCl 300 mg PO QAM 05/12/20 05/19/20 History ferrous sulfate [Iron (ferrous 325 mg PO DAILY 05/12/20 05/19/20 History sulfate)] hydroxyzine HCl 75 mg PO BEDTIME 05/12/20 05/19/20 History magnesium 200 mg PO BID 05/12/20 05/12/20 History ropinirole 1 mg PO QID 05/12/20 05/19/20 History Allergies Allergy/AdvReac Type Severity Reaction Status Date / Time latex Allergy Rash, It Verified 05/19/20 11:37 peels off my skin off Review of Systems Review of Systems ROS: Yes All systems reviewed with the patient and are negative except as otherwise documented Exam Vital Signs (past 8 hours): - 05/19/20 11:44 Temperature 97.6 F Pulse Rate 56 L Respiratory Rate 16 Blood Pressure 131/74 Pulse Oximetry 100 Oxygen Delivery Method Room Air Narrative Exam Narrative: Patient is awake, alert, oriented, and conversant in no obvious distress. Afebrile and vital signs stable HEENT normocephalic atraumatic Lungs clear to auscultation Heart regular rate and rhythm Abdomen benign Extremity benign with the exception of the left lower extremity which has restricted range of motion of the left hip and pain on extremes of motion. Distal neurovascular examination is intact Assessment & Plan Assessment & Plan narrative: 65-year-old female with left hip DJD plan left total hip arthroplasty and informed consent obtained. COVID-19 COVID-19 status: Negative Result date/Date tested (Pos, Neg/Pending): 05/16/20
--- NOTE | 2020-05-19 12:31 | SUR.OPER ---
Lateral on padded OR bed, head on pillow, gel axillary roll in place, bottom leg bent with gel pad under knee to foot, upper leg straight and supported with pillows. Upper arm supported by pillows and secured over bottom arm to padded arm board. Safety belt at hip, tape over blanket lower legs.
[2020-05-19] MEDS: CEFAZOLIN 2 GM/100 ML FROZ.PIGGY IV ×2 (12:40→21:16)
[2020-05-19] MEDS: ROPIVACAINE 0.5% PF 20ML 60 ML, MORPHINE 4 MG, KETOROLAC 30 MG INJ (13:26)
[2020-05-19] MEDS: TRANEXAMIC ACID 1,000 MG VIAL 1000 MG IV ×2 (13:32→14:05)
--- NOTE | 2020-05-19 14:31 | PM.OP.1 ---
Operative Date/Time/Diagnoses Date of procedure: 05/19/20 Time of procedure: 14:31 Pre-op diagnosis: Left hip degenerative joint disease Post-op diagnosis: same Procedure & Clinicians Procedure: Left total hip arthroplasty (CPT code 27709 with life enrichment assistant) Same procedure as scheduled: Yes Indications: Patient is an 65-year-old female with severe left hip DJD. The patient has pain with activities and at rest, limited ambulation and activity tolerance, difficulties with ADLs, and failure of conservative treatment. We have discussed the nature of condition, treatment options, risks and benefits, and patient elects to proceed with total hip arthroplasty and gives informed consent. Surgeon: David Dumas Wool Sacker: Jeff Castro Anesthesia Type: General and Spinal Operative Notes Closure Type: primary Specimen(s): none sent Prosthetic devices, grafts, tissues, transplants, or devices: Acetabulum: [employer]brook [employer]hew R3 acetabular component size 52 mm Femoral component: [employer]hew Anthology stem size 9 with standard offset Femoral head: 36 mm + 0 Oxinium Estimated Blood Loss (mL): 150 Procedure in detail: After satisfaction induction of anesthetic, and administration of IV antibiotics, the patient was positioned in the lateral decubitus position with all bony prominences well padded and pelvic position secured using a hip human insights lead ads marketing positioning device. Left hip and lower extremity prepped and draped in the usual sterile fashion, 1st dose of intravenous tranexamic acid was administered, then a longitudinal incision was created centered over the greater trochanter and carried sharply through the skin and subcutaneous tissues down to the fascia faraz which was divided longitudinally and retracted with a Charnley retractor. External rotators visualize, cut, tagged, and retracted posteriorly, then the capsule was cut in a T-type fashion with the corners tagged and retracted. Hip was dislocated and femoral neck cut made according to preoperative templating. Acetabular retractors then placed, and the acetabular labrum and osteophytes were excised. The acetabulum was then sequentially reamed to 51 mm with an excellent circumferential ream and fit with the trial. The trial component was removed and a permanent size 52 mm Westbrook [employer] Nephew R3 acetabular component was selected, positioned, and impacted with satisfactory position and fixation achieved. Permanent liner was then inserted with the elevated lip directed posteriorly. Soft tissue then removed off the lateral femoral neck in the lateral neck was entered using a box osteotome. T-handled reamers placed down the canal followed by sequential broaching to 9 with the final broach left in place for trial reduction which demonstrated excellent leg length, range of motion, and stability characteristics with a 36 mm +0 trial ball. The trial and broach were removed, and a permanent size 9 Westbrook [employer] Nephew Anthology stem was selected and inserted with excellent position and fixation achieved. Another trial reduction yielded the above characteristics so the trial ball was exchanged for a permanent 36 mm +0 Oxinium ball. The hip was irrigated and reduced and excellent leg length range of motion and stability characteristics were achieved and maintained. Periarticular tissues were infiltrated with ropivacaine, morphine, and Toradol. The hip was copiously irrigated, and the capsule repaired with #2 Ethibond, and the piriformis was repaired back to the greater trochanter with the same. Fascia faraz closed with interrupted #1 Ethibond sutures, and the subcutaneous tissues were closed in 2 layers of 0 Vicryl and 2 0 Vicryl. Skin was closed with mayra and sterile dressings applied. Second dose of tranexamic acid was administered intravenously, and the anesthetic was terminated. Complications: none Post-operative Condition: stable Disposition: PACU Plan for aftercare: Patient will be admitted to the acute care cort[facility], and anticipate discharge on postop day 1 with follow-up in office in 10-14 days. Outpatient physical therapy will be arranged and patient will continue to observe posterior hip precautions. Patient will continue use of aspirin postoperatively for DVT prophylaxis..
[2020-05-19] MEDS: fentaNYL 100 MCG/2 ML INJ IV ×2 (15:04→15:09)
--- NOTE | 2020-05-19 16:04 | SUR.PHASEI ---
Patient taken up to room 225 with all belongings. Left in stable condition with receiving RN at bedside
[2020-05-19] MEDS: ACETAMINOPHEN 325 MG TABLET 650 MG PO ×2 (16:38→22:07)
[2020-05-19] MEDS: GABAPENTIN 300 MG CAPSULE PO ×2 (16:38→20:17)
[2020-05-19] MEDS: OXYCODONE IR 5 MG TABLET PO ×3 (16:39→22:07)
[2020-05-19] MEDS: ROPINIROLE 1 MG TABLET PO ×2 (19:07→20:12)
[2020-05-19] MEDS: OXYCODONE IR 10 MG TABLET PO (20:12)
[2020-05-19] MEDS: HYDROMORPHONE 2 MG INJ 1 MG IV (20:13)
[2020-05-19] MEDS: LACTATED RINGERS 1,000 ML 125 ML IV (21:16)
[2020-05-19] MEDS: TRAZODONE 100 MG TABLET 200 MG PO (22:07)
[2020-05-19] MEDS: ASPIRIN EC 81 MG TABLET PO (22:07)
[2020-05-19] MEDS: hydrOXYzine pamoate 25 MG CAPSULE 75 MG PO (22:07)
[2020-05-19] MEDS: DOCUSATE 100 MG CAPSULE PO (22:07)
[2020-05-19] MEDS: HYDROMORPHONE 2 MG INJ IV (22:40)
--- NOTE | 2020-05-19 23:15 | PC.NURSE ---
pain management upon arrival to from PACU pt denied pain and had residual numbness/tingling from spinal anesthetic. pt encouraged to notify RN when pain occurs for intervention. Pt reported and medicated for pain @ 1630 with 5mg oxycodone. Pt also states RLS symptoms of exacerbating pain. Pt medicated with requip and gabapentin per her home routine for the same. continued to state pain at @1900 medicated with next dose of 5mg oxy. 30min post administration pt was crying and restless rating pain 10/10. Now has sensation to entire LLE and states pain from hip to groin and radiating down. Again says her RLS is acting up and increasing discomfort. No calf tendreness/redness. brisk capillary refill and PP+. Call to and received and administered order for 10mg PO oxy and 1mg IVP dilaudid. pt stated some improvement post IVP and was no longer crying in pain and was able to use a bed whaley. post bed whaley pt agreeable to try to lay to left side, only tolerated approx 5 minutes before stating it was too uncomfortable. 2200 5mg oxy administered with pt's home routine med Vistaril. this RN explained to pt that even though she takes vistaril for anxiety, it should help with her muscle spasms to leg as well. 2230 pt crying out in pain clinching the sides of the bed because pain is so great. call to and received order for 2mg IVP Dilaudid as well changed oxycodone to PO dilaudid. 2240 pt medicated with 2mg IVP dilaudid and is now relaxing in bed. CMS remains +.
[2020-05-19] MEDS: HYDROMORPHONE 4 MG TABLET PO (23:33)
[2020-05-20] VITALS (7 sets, daily range): BP systolic 99–125; BP diastolic 53–81; PULSE 73–92; RESP 16–18; TEMP 36.1–36.6; O2SAT 94–100
[2020-05-20] MEDS: HYDROCODONE/ACET 5/325 TABLET 1 TAB PO ×2 (02:12→06:23)
[2020-05-20] MEDS: HYDROMORPHONE 2 MG INJ IV ×3 (02:54→21:24)
[2020-05-20] MEDS: HYDROMORPHONE 4 MG TABLET PO ×2 (04:00→09:22)
[2020-05-20] MEDS: CEFAZOLIN 2 GM/100 ML FROZ.PIGGY IV (04:07)
--- NOTE | 2020-05-20 04:17 | PC.NURSE ---
Medicating pt q 4 hours for pain relief of L hip and L knee pain. Dilaudid only reduces pain to 6/10 - pt experiences only brief moments of sleep. Up to chair at 0400 seems to aid in pain relief that is exacerbated by her RLS. Ice applied to L hip and knee. 1L O2 applied while sleeping for O2 sats dropping into low 90's.
[2020-05-20 05:46] LABS: Hematocrit 31.4 % (36-46); Hemoglobin 10.3 g/dL (12.0-16.0)
--- NOTE | 2020-05-20 07:49 | PM.PNPO.1 ---
Subjective Subjective Date Patient Seen: 05/20/20 Time Patient Seen: 07:49 Interval history: Postop day 1. Left total hip arthroplasty. Significant pain and left lower extremity spasm during the night last night. She attributes this largely to her restless leg syndrome but was repaired quite uncomfortable. Seems to have finally got her pain under control with a combination of IV and oral Dilaudid. Exam Vital Signs (past 8 hours): - 05/20/20 00:00 05/20/20 02:49 Temperature 97.8 F 97.4 F L Pulse Rate 73 74 Respiratory Rate 16 18 Blood Pressure 99/53 L 112/53 L Pulse Oximetry 95 99 Oxygen Delivery Method Nasal Cannula Oxygen Flow Rate 1 Narrative Exam Narrative: Afebrile and vital signs stable. The patient is awake alert oriented and conversant and in no obvious distress this morning. Dressing is dry and intact and distal neurovascular examination is intact. There is no significant swelling of the lower extremity and calf is nontender. Objective Labs Result Diagrams: 05/20/20 05:00 Labs: Laboratory Results - last 24 hr 05/20/20 05:00 Hgb 10.3 L Hct 31.4 L Assessment & Plan Post-op Postoperative Procedures: Procedures Operation Date: 05/19/20 12:45 Actual Procedures Side Surgeon p Total Hip Arthroplasty Left David Dumas MD Postoperative day: 1 Postoperative status: doing well Postoperative status narrative: Doing reasonably well postop day 1. Had a rough night last night with pain and muscle spasm. Seems to be under better control at this time. Will mobilize per routine but give her the day to recover in stable as today, and anticipate discharge tomorrow. Postoperative plan: routine post-op care Postoperative plan narrative: Routine postoperative physical therapy and care today adjust pain medications as needed and anticipate discharge to home tomorrow. Quality VTE Deep Vein Thrombosis/Pulmonary Embolism Present on Admission: No
[2020-05-20] MEDS: ASPIRIN EC 81 MG TABLET PO ×2 (09:19→19:50)
[2020-05-20] MEDS: buPROPion SR 150 MG TAB 300 MG PO (09:19)
[2020-05-20] MEDS: FERROUS SULFATE 325 MG TABLET PO (09:22)
[2020-05-20] MEDS: ACETAMINOPHEN 325 MG TABLET 650 MG PO ×3 (09:22→19:49)
[2020-05-20] MEDS: GABAPENTIN 300 MG CAPSULE PO ×2 (09:22→19:50)
[2020-05-20] MEDS: DOCUSATE 100 MG CAPSULE PO ×2 (09:22→19:49)
[2020-05-20] MEDS: ROPINIROLE 1 MG TABLET PO ×4 (09:22→19:49)
[2020-05-20] MEDS: MELOXICAM 7.5 MG TABLET 3.75 MG PO (09:23)
--- NOTE | 2020-05-20 11:55 | PT.IIE ---
Current Diagnoses Unilateral primary osteoarthritis, left hip (05/19/20) Surgery Performed Operation Date: 05/19/20 12:45 Actual Procedures p Total Hip Arthroplasty(Left) - David Dumas MD Surgical History (Last Reviewed 05/19/20 @ 12:07 by David Dumas MD) H/O shoulder surgery (Inactive 2012) History of cholecystectomy (Inactive 2013) History of tubal ligation (Inactive) Hx of section (Resolved Unknown) Hx of LASIK (Acute 1999) Hx of shoulder surgery (Resolved) Medical History (Last Reviewed 05/19/20 @ 12:07 by David Dumas MD) Alcoholic cirrhosis (Chronic) Alcoholism (Chronic) Anxiety (Inactive ~2013) Bradycardia (Acute) Carpal tunnel syndrome (Chronic ~2011) Cervical radiculopathy due to trauma (Resolved Unknown) Chicken pox (Resolved ~1961) Depression (Chronic ~1989) Gastric ulcer (Chronic ~2017) Hypertension (Chronic Unknown) Insomnia (Chronic Unknown) Mumps (Resolved ~1964) Osteoarthritis (Acute) Plantar warts (Inactive ~1979) Pneumonia (Acute) Restless leg syndrome (Chronic Unknown) Shoulder pain (Inactive ~1994) Sleep apnea (Inactive ~2000) Substance abuse (Inactive ~1974) Physical Therapy Inpatient Evaluation/Re-Eval M1 PT/OT-IP Prior Functional Status Start: 05/20/20 08:33 Freq: NEEDED Status: Active Protocol: Document 05/20/20 11:42 AW (Rec: 05/20/20 11:46 AW [email or web address]) Medical Review Prior Functional Status Medical History Reviewed Yes Communication WNL. Pt is an effective verbal communicator. Mobility and Gait Pt was independent wtihout AD but states stairs, inclines, and uneven terrain were becoming more difficult to navigate in the last few months. Activities of Daily Living and IADL's Independent except for donning socks. Pt's provides assist. 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 Social History Household Members spouse Living Arrangements House Number of Floors (Floors) One Floor Number of Stairs To Enter/Railing? 3 [place] with left rail ascending . Pt has stairs off her deck to the backyard but does not plan to use them at discharge. Home Environment Standard Height Toilet,Walk in Shower Home Equipment Front Wheel Walker,Four Wheel Walker,Straight Cane,Raised Toilet Seat Without Armrests, Hand Held Shower,Long Handled Shoe Horn,Dental Tech,Lift Recliner Additional Social History Comment Pt is retired and lives with her spouse, Alhaji, who will be home with her to assist at discharge. M2 PT-IP Current Condition Start: 05/20/20 08:33 Freq: NEEDED Status: Active Protocol: Document 05/20/20 11:42 AW (Rec: 05/20/20 11:59 AW [email or web address]) Physical Therapy Current Condition Current Condition Evaluation Date 05/20/20 Treatment Diagnosis L ISAIAH with posterior approach; difficulty in walking Onset Date 05/19/20 Precautions Posterior Hip Precautions No Hip Flexion > 90 degrees,No Hip Internal Rotation,No Hip Adduction Weight Bearing Status Weight Bearing Status Weight Bear as Tolerated M3 PT-IP Subjective Start: 05/20/20 08:33 Freq: NEEDED Status: Active Protocol: Document 05/20/20 11:42 AW (Rec: 05/20/20 11:59 AW [email or web address]) Subjective Physical Therapy Visit Type Type Initial Evaluation Visit Start Time 11:10 Visit Stop Time 11:40 Total Visit Minutes 30 Notes Pt's spouse was present for evaluation. Number of VIDEO GAME CREATOR Visits 0 Physical Therapy Visit Comments Patient Comments Pt is experiencing 8/10 pain but is willing to participate with PT Patient Goals Discharge to home and resume outpatient PT. Therapy Pain Assessment Pain When Pain Assessed During Mobility Pain Present Pain Present Pain Reported Location Left Hip Intensity 8 Pain Management Techniques Apply Cold,Distraction,Re- positioning,Timing of Activity with Medications M4 PT-IP Mobility and Gait Start: 05/20/20 08:33 Freq: NEEDED Status: Active Protocol: Document 05/20/20 11:42 AW (Rec: 05/20/20 11:59 AW [email or web address]) PT-Bed Mobility Assessment Supine to Sit Supine to Sit Minimal Assistance,1 Person Assistance Sit to Supine Sit to Supine Contact Guard Assistance Scooting Scooting to Edge of Bed Standby Assistance PT-Transfer Assessment Sit to and From Stand Sit to and from Stand Minimal Assistance,1 Person Assistance,Use of Upper Extremities Equipment Transfer Assistive Device Gait Belt,Front Wheeled Walker Orthotic/Prosthetic Devices or Brace: No Transfers Transfer Destination Chair Transfer Technique pt ambulated with FWW Transfer Ability Level of Assist Minimal Assistance,1 Person Assistance,Use of Upper Extremities Comments Mobility Comments Pt was sitting EOB upon therapy arrival to the room. Her was instructed to don the gait belt. PT then assisted the pt to supine, requiring CGA for support of the operative leg. Pt then completed supine to sit by pivoting her hips toward EOB and then requiring PT min assist of hand hold from the front to pull up to sitting. She was able to sit EOB with and without UE support during strength assessment. She then stood using FWW min A x 1. She shifted weight and performed small marching steps by EOB in preparation for gait. She then ambulated 20 feet around the room CGA before requesting return to the chair. Pt needed min A x 1 for hand positioning on the chair and guidance for controlling her sitting motion. Pt was positioned on the chair and requested additional pain meds . RN notified. Pt was left with call light and all needs in reach. Her spouse remained at bedside. Gait Assessment Gait Gait Assistance Required: Contact Guard Assist Distance (Feet) 20 Able to Maintain Weight Bearing Status Yes During Gait Assistive Devices Assistive Device Gait Belt,Front Wheeled Walker Gait Deviations General Gait Pattern Antalgic,Decreased Stride Length,Decreased Feet Clearance,Flexed Trunk,Step-to Gait Factors Limiting Gait Function Factors Limiting Gait Function Decreased Activity Tolerance, Decreased Strength,Difficulty Following Directions,Limited Range of Motion,Pain,Poor Balance,Poor Safety Awareness Comments Gait Comments See mobility comments. Pt was cued for step length correction but continued with step-to pattern. Stair Climbing Assessment Comments Stair Climbing Comments Not assessed. PT-Balance Assessment Sitting Balance and Reactions Static Sitting Balance Ability Normal Dynamic Sitting Balance Ability Good Standing Balance and Reactions Static Standing Balance Ability Good Dynamic Standing Balance Ability Good Device Used FWW M5 PT-IP Objective Assessments Start: 05/20/20 08:33 Freq: NEEDED Status: Active Protocol: Document 05/20/20 11:42 AW (Rec: 05/20/20 11:59 AW [email or web address]) Orientation Orientation/Cognition Level of Alertness Alert Orientation Name,Day of Week,Place, Situation Language Function Ability No Deficits Noted Safety Awareness Decreased Safety Awareness Memory Description No Deficits Noted Gross Range of Motion Upper Extremity ROM Assessment Within Functional Limits Lower Extremity ROM Assessment Left Impaired Strength Upper Extremity Strength Assessment Right Impaired Lower Extremity Strength Assessment Bilaterally Impaired Comments Strength Comments RUE s/p rotator cuff repair with decreased strength. RLE grossly 4/5. Coordination Assessment Gross Coordination Gross Coordination WNL Sensation Assessment Sensation Gross Sensation WNL Muscle Tone Muscle Tone WNL Yes M6 PT-IP Treatment Start: 05/20/20 08:33 Freq: NEEDED Status: Active Protocol: Document 05/20/20 11:42 AW (Rec: 05/20/20 11:59 AW [email or web address]) Physical Therapy Treatment Exercises Exercises Ankle Pumps,Heel Slides Education Education Provided Precautions,Weight Bearing Status,Post-Op Packet,Safety Other Treatments Other Treatment Performed Provided education on role of PT, plan of care, weightbearing status, posterior hip precautions, and safe use of FWW. M7 PT-IP Assessment and Plan Start: 05/20/20 08:33 Freq: NEEDED Status: Active Protocol: Document 05/20/20 11:42 AW (Rec: 05/20/20 11:59 AW [email or web address]) PT Summary Assessment and Plan Potential Rehabilitation Potential Good Status of Condition at Evaluation Evolving Summary Impairments Pain,ROM,Strength,Balance,Bed Mobility,Transfers Assessment Summary Leanna is a 65 yo woman seen for PT evaluation on POD1 following L ISAIAH with posterior approach. She is independent with ambulation at baseline but endorses difficulty with stairs, inclines, and uneven terrain. On evaluation, she is requiring CGA to min assist with all mobility, including short bout ambulation with FWW . Pain was the limiting factor on evaluation. PT anticipates she will progress well and be safe to discharge home with spouse assist and outpatient PT once medically cleared. She will need to participate in stair training prior to discharge. Goals Bed Mobility Goal Standby Assistance Transfer Goal Standby Assistance,Front Wheeled Walker Gait Goal Standby Assistance,Front Wheel Walker Gait Distance 200 Other Goals - up/down 3 steps with L rail ascending CGA Days to Meet Goals 2 Frequency of Treatment Frequency Of Treatment Twice a Day Treatment Plan Physical Therapy Treatment Plan Bed Mobility Training,Transfer Training,Gait Training, Therapeutic Exercise,Balance Retraining,Post Op Education, Discharge Planning,Hot or Cold Pack,Neuromuscular Re-ed Other Recommendations and Next Treatment gait training with FWW; Focus transfers; stairs when able Recommendations To Nursing Amount of Assist Needed 1 Person Assist Discharge Recommendations PT Discharge Recommendations Home with Assistance, Outpatient PT Transportation Needs at Discharge Private Vehicle
--- NOTE | 2020-05-20 12:42 | PC.NURSE ---
Addendum entered by Jyoti Cox R.N. 05/20/20 15:17: Patient not medicated with dilaudid in the after noon as she was too drowzy. Given tylenol. She is totally A&Ox3 and states that she does have a bit of pain but then falls to sleep. Report passed onto Irlanda Cornejo Original Note: Assess- Patient is A&Ox3...She denies pain after 4mg po dilaudid given. Dressing to l.hip is bulky and cdi. Sitting up in the chair and tolerating well. Appetite good at lunch and breakfast. CMS wnl and ppx2. in room and helpful. Worked well with physical therapy, will most likely go home tomorrow.
--- NOTE | 2020-05-20 12:46 | CM.DPNOTE ---
Brief D/C Assessment: EMR reviewed: Patient is a 65 female one day post op LTH pt. of Dr. Dumas. CM/Rn met with patient and at the bedside and explained role. Patient was alert and oriented x3 at time of CM visit. Patient was in a lot of pain so assessment meeting was brief. patient lives in [place] with supportive . Patient currently is Independent at home with toileting grooming eating and driving, I: MONA and Mickie Plan: D/C plan home with OP PT here at [facility]
--- NOTE | 2020-05-20 14:41 | PT.IPTN ---
Current Diagnoses Unilateral primary osteoarthritis, left hip (05/19/20) Surgery Performed Operation Date: 05/19/20 12:45 Actual Procedures p Total Hip Arthroplasty(Left) - David Dumas MD Physical Therapy Treatment Note M2 PT-IP Current Condition Start: 05/20/20 08:33 Freq: NEEDED Status: Active Protocol: Document 05/20/20 11:42 AW (Rec: 05/20/20 11:59 AW [email or web address]) Physical Therapy Current Condition Current Condition Evaluation Date 05/20/20 Treatment Diagnosis L ISAIAH with posterior approach; difficulty in walking Onset Date 05/19/20 Precautions Posterior Hip Precautions No Hip Flexion > 90 degrees,No Hip Internal Rotation,No Hip Adduction Weight Bearing Status Weight Bearing Status Weight Bear as Tolerated M3 PT-IP Subjective Start: 05/20/20 08:33 Freq: NEEDED Status: Active Protocol: Document 05/20/20 14:27 AW (Rec: 05/20/20 14:41 AW [id number]) Subjective Physical Therapy Visit Type Type Treatment Note Visit Start Time 14:08 Visit Stop Time 14:26 Total Visit Minutes 18 Number of DESIGN DIRECTOR Visits 0 Physical Therapy Visit Comments Patient Comments Pt is quite groggy but willing to participate with PT Therapy Pain Assessment Pain When Pain Assessed During Mobility Location left knee Intensity 5 Scale Used Numeric (0 - 10) Pain Behaviors Facial Grimacing,Restlessness Pain Management Techniques Re-positioning,Timing of Activity with Medications Left Hip Intensity 5 Scale Used Numeric (0 - 10) Pain Behaviors Facial Grimacing,Restlessness Pain Management Techniques Apply Cold,Re-positioning, Timing of Activity with Medications M4 PT-IP Mobility and Gait Start: 05/20/20 08:33 Freq: NEEDED Status: Active Protocol: Document 05/20/20 14:27 AW (Rec: 05/20/20 14:41 AW [id number]) PT-Bed Mobility Assessment Sit to Supine Sit to Supine Contact Guard Assistance Scooting Scooting to Edge of Bed Standby Assistance PT-Transfer Assessment Sit to and From Stand Sit to and from Stand Minimal Assistance,1 Person Assistance,Use of Upper Extremities Equipment Transfer Assistive Device Gait Belt,Front Wheeled Walker Orthotic/Prosthetic Devices or Brace: No Transfers Transfer Destination Bed Transfer Technique pt ambulated with FWW Transfer Ability Level of Assist Minimal Assistance,1 Person Assistance,Use of Upper Extremities Comments Mobility Comments Pt was sitting up in the chair and had difficulty keeping her eyes open as PT arrived. She stood from the chair min A x 1. She ambulated around the bed and into the hallway CGA for a distance of 30 feet before requesting a standing rest break. Pt was more alert on her feet and was able to safely ambulate back into the room. She transferred to and from the toilet [facility] using the right-sided grab bar. She walked back to the bed with FWW CGA and transferred sit to supine CGA to guide her operative leg into the bed. Pt was positioned with ice pack applied to left hip, call light and all needs in reach, bed alarm armed for safety. Gait Assessment Gait Gait Assistance Required: Contact Guard Assist Distance (Feet) 30 Able to Maintain Weight Bearing Status Yes During Gait Assistive Devices Assistive Device Gait Belt,Front Wheeled Walker Orthotic/Prosthetic Devices or Brace: No Gait Deviations General Gait Pattern Antalgic,Decreased Stride Length,Decreased Feet Clearance,Flexed Trunk,Step-to Gait Factors Limiting Gait Function Factors Limiting Gait Function Decreased Activity Tolerance, Decreased Strength,Difficulty Following Directions,Limited Range of Motion,Pain,Poor Balance,Poor Safety Awareness Comments Gait Comments Pt's step-to patterning persisted due to decreased ability to attend to task. Stair Climbing Assessment Comments Stair Climbing Comments Not assessed. PT-Balance Assessment Sitting Balance and Reactions Static Sitting Balance Ability Normal Dynamic Sitting Balance Ability Good Standing Balance and Reactions Static Standing Balance Ability Good Dynamic Standing Balance Ability Good Device Used FWW M5 PT-IP Objective Assessments Start: 05/20/20 08:33 Freq: NEEDED Status: Active Protocol: Document 05/20/20 11:42 AW (Rec: 05/20/20 11:59 AW [email or web address]) Orientation Orientation/Cognition Level of Alertness Alert Orientation Name,Day of Week,Place, Situation Language Function Ability No Deficits Noted Safety Awareness Decreased Safety Awareness Memory Description No Deficits Noted Gross Range of Motion Upper Extremity ROM Assessment Within Functional Limits Lower Extremity ROM Assessment Left Impaired Strength Upper Extremity Strength Assessment Right Impaired Lower Extremity Strength Assessment Bilaterally Impaired Comments Strength Comments RUE s/p rotator cuff repair with decreased strength. RLE grossly 4/5. Coordination Assessment Gross Coordination Gross Coordination WNL Sensation Assessment Sensation Gross Sensation WNL Muscle Tone Muscle Tone WNL Yes M6 PT-IP Treatment Start: 05/20/20 08:33 Freq: NEEDED Status: Active Protocol: Document 05/20/20 14:27 AW (Rec: 05/20/20 14:41 AW [id number]) Physical Therapy Treatment Exercises Exercises Ankle Pumps,Gluteal Sets,Quad Sets,Heel Slides Education Education Provided Precautions,Safety Other Treatments Other Treatment Performed Pt completed short sets of supine exercises due to sleepiness and fatigue. M7 PT-IP Assessment and Plan Start: 05/20/20 08:33 Freq: NEEDED Status: Active Protocol: Document 05/20/20 14:27 AW (Rec: 05/20/20 14:41 AW [id number]) PT Summary Assessment and Plan Potential Rehabilitation Potential Good Status of Condition at Evaluation Evolving Summary Impairments Pain,ROM,Strength,Balance,Bed Mobility,Transfers Progress Towards Goals Slow Progress due to Pain Assessment Summary Pt unable to tolerate much activity this PM due to sleepiness likely from pain medication. She did increase her gait distance safely. Pt had complaints of increased left knee pain with ambulation and bed mobility, stating she has had this pain for some time but it seems worse now. PT will continue to assess but pt will likely be safe to discharge home with assist and outpatient PT once medically cleared. Goals Bed Mobility Goal Standby Assistance Transfer Goal Standby Assistance,Front Wheeled Walker Gait Goal Standby Assistance,Front Wheel Walker Gait Distance 200 Other Goals - up/down 3 steps with L rail ascending CGA Days to Meet Goals 2 Frequency of Treatment Frequency Of Treatment Twice a Day Treatment Plan Physical Therapy Treatment Plan Bed Mobility Training,Transfer Training,Gait Training, Therapeutic Exercise,Balance Retraining,Post Op Education, Discharge Planning,Hot or Cold Pack,Neuromuscular Re-ed Other Recommendations and Next Treatment gait training with FWW; Focus transfers; stairs when able Recommendations To Nursing Amount of Assist Needed 1 Person Assist Discharge Recommendations PT Discharge Recommendations Home with Assistance, Outpatient PT Transportation Needs at Discharge Private Vehicle
[2020-05-20] MEDS: HYDROMORPHONE 2 MG TABLET PO ×3 (16:04→20:33)
[2020-05-20] MEDS: TRAZODONE 100 MG TABLET 200 MG PO (19:50)
[2020-05-20] MEDS: hydrOXYzine pamoate 25 MG CAPSULE 75 MG PO (19:50)
[2020-05-21] MEDS: HYDROMORPHONE 4 MG TABLET PO ×2 (02:29→07:14)
[2020-05-21 04:50] VITALS: BP 117/62; PULSE 78; RESP 16; TEMP 36.3; O2SAT 95
[2020-05-21 08:00] VITALS: BP 108/58; PULSE 84; RESP 16; TEMP 36.7; O2SAT 99
[2020-05-21] MEDS: MELOXICAM 7.5 MG TABLET 3.75 MG PO (09:01)
[2020-05-21] MEDS: FERROUS SULFATE 325 MG TABLET PO (09:03)
[2020-05-21] MEDS: GABAPENTIN 300 MG CAPSULE PO (09:03)
[2020-05-21] MEDS: ASPIRIN EC 81 MG TABLET PO (09:03)
[2020-05-21] MEDS: buPROPion SR 150 MG TAB 300 MG PO (09:03)
[2020-05-21] MEDS: ACETAMINOPHEN 325 MG TABLET 650 MG PO (09:03)
[2020-05-21] MEDS: DOCUSATE 100 MG CAPSULE PO (09:03)
[2020-05-21] MEDS: ROPINIROLE 1 MG TABLET PO (09:04)
--- NOTE | 2020-05-21 10:26 | PT.IPTN ---
Current Diagnoses Unilateral primary osteoarthritis, left hip (05/19/20) Surgery Performed Operation Date: 05/19/20 12:45 Actual Procedures p Total Hip Arthroplasty(Left) - David Dumas MD Physical Therapy Treatment Note M2 PT-IP Current Condition Start: 05/20/20 08:33 Freq: NEEDED Status: Discharge Protocol: Document 05/20/20 11:42 AW (Rec: 05/20/20 11:59 AW [email or web address]) Physical Therapy Current Condition Current Condition Evaluation Date 05/20/20 Treatment Diagnosis L ISAIAH with posterior approach; difficulty in walking Onset Date 05/19/20 Precautions Posterior Hip Precautions No Hip Flexion > 90 degrees,No Hip Internal Rotation,No Hip Adduction Weight Bearing Status Weight Bearing Status Weight Bear as Tolerated M3 PT-IP Subjective Start: 05/20/20 08:33 Freq: NEEDED Status: Discharge Protocol: Document 05/21/20 09:48 KS (Rec: 05/21/20 12:16 KS [id number]) Subjective Physical Therapy Visit Type Type Treatment Note Visit Start Time 09:48 Visit Stop Time 10:26 Total Visit Minutes 38 Number of OVERHEAD IRRIGATOR Visits 1 Physical Therapy Visit Comments Patient Comments Pt agreeable to work w/ therapy. Pts present for caregiver training. Patient Goals Discharge to home and resume outpatient PT. Therapy Pain Assessment Pain When Pain Assessed During Mobility Pain Present Pain Present Pain Reported Location left knee Intensity 4 Scale Used Numeric (0 - 10) Pain Behaviors Facial Grimacing,Restlessness Pain Management Techniques Re-positioning,Timing of Activity with Medications M4 PT-IP Mobility and Gait Start: 05/20/20 08:33 Freq: NEEDED Status: Discharge Protocol: Document 05/21/20 09:48 KS (Rec: 05/21/20 12:16 KS [id number]) PT-Bed Mobility Assessment Supine to Sit Supine to Sit Minimal Assistance,1 Person Assistance Sit to Supine Sit to Supine Minimal Assistance Scooting Scooting to Edge of Bed Standby Assistance PT-Transfer Assessment Sit to and From Stand Sit to and from Stand Contact Guard Assistance,1 Person Assistance,Use of Upper Extremities Equipment Transfer Assistive Device Gait Belt,Front Wheeled Walker Orthotic/Prosthetic Devices or Brace: No Transfers Transfer Destination Bed Transfer Technique pt ambulated with FWW Transfer Ability Level of Assist Minimal Assistance,1 Person Assistance,Use of Upper Extremities Comments Mobility Comments Pt in bed upon arrival from therapy and able to recall 3/3 precautions. provided Min A for sup<>sit for trunk control. Pt SBA for scooting to EOB. Pt then sit<>stand w/ FWW and ambulated ~20 ft to w/ c outside of room CGA. Pt then transported to stairs in w/c. Pt completed 1 platform step x2 w/ ascended/descend CGA and cues provided by OVERHEAD IRRIGATOR on first set and CGA and cues provided by on completion of second platform step. Pt then ambulated additional 30 ft w/ CGA provided by . Cues for equal step length. Pt then w/c remainder of distance back to room. CGA for sit<> stand from w/c and ~20 ft ambulation back to bed. Pts provided Min A for LE guidance for pt sit<>sup. Pt and state they feel safe to return home and continued outpatient PT. Gait Assessment Gait Gait Assistance Required: Contact Guard Assist Distance (Feet) 70 Able to Maintain Weight Bearing Status Yes During Gait Assistive Devices Assistive Device Gait Belt,Front Wheeled Walker Orthotic/Prosthetic Devices or Brace: No Gait Deviations General Gait Pattern Antalgic,Decreased Stride Length,Decreased Feet Clearance,Flexed Trunk,Step-to Gait Factors Limiting Gait Function Factors Limiting Gait Function Decreased Activity Tolerance, Decreased Strength,Difficulty Following Directions,Limited Range of Motion,Pain,Poor Balance,Poor Safety Awareness Comments Gait Comments Pt ambulated ~70 ft total w/ FWW and CGA. Pt continues to have step to pattern, but was able to improve with cues. Stair Climbing Assessment Evaluation Level of Assist On Stairs Contact Guard Assistance,1 Person Assistance Devices Stair Climbing Assistive Devices Front Wheel Walker Technique/Endurance Stair Climbing Direction Ascend and Descend Stair Climbing Technique Step to Step Number of Steps Climbed 1 Stair Climbing Set # Repetitions (reps) 2 Comments Stair Climbing Comments Pt ascended/descended 1 platform step x2 w/ FWW CGA and cues for sequencing. Pt provided CGA and cues on pts completion of second step. Pt and state they both feel safe to complete entrance step at home . PT-Balance Assessment Sitting Balance and Reactions Static Sitting Balance Ability Normal Dynamic Sitting Balance Ability Good Standing Balance and Reactions Static Standing Balance Ability Good Dynamic Standing Balance Ability Good Device Used FWW M5 PT-IP Objective Assessments Start: 05/20/20 08:33 Freq: NEEDED Status: Discharge Protocol: Document 05/20/20 11:42 AW (Rec: 05/20/20 11:59 AW [email or web address]) Orientation Orientation/Cognition Level of Alertness Alert Orientation Name,Day of Week,Place, Situation Language Function Ability No Deficits Noted Safety Awareness Decreased Safety Awareness Memory Description No Deficits Noted Gross Range of Motion Upper Extremity ROM Assessment Within Functional Limits Lower Extremity ROM Assessment Left Impaired Strength Upper Extremity Strength Assessment Right Impaired Lower Extremity Strength Assessment Bilaterally Impaired Comments Strength Comments RUE s/p rotator cuff repair with decreased strength. RLE grossly 4/5. Coordination Assessment Gross Coordination Gross Coordination WNL Sensation Assessment Sensation Gross Sensation WNL Muscle Tone Muscle Tone WNL Yes M6 PT-IP Treatment Start: 05/20/20 08:33 Freq: NEEDED Status: Discharge Protocol: Document 05/21/20 09:48 KS (Rec: 05/21/20 12:16 KS [id number]) Physical Therapy Treatment Exercises Exercises Ankle Pumps,Gluteal Sets,Quad Sets,Heel Slides Education Education Provided Precautions,Safety Other Treatments Other Treatment Performed Completed caregiver training. Educated pt on entering/ exiting vehicle. M7 PT-IP Assessment and Plan Start: 05/20/20 08:33 Freq: NEEDED Status: Discharge Protocol: Document 05/21/20 09:48 KS (Rec: 05/21/20 12:16 KS [id number]) PT Summary Assessment and Plan Potential Rehabilitation Potential Good Status of Condition at Evaluation Evolving Summary Impairments Pain,ROM,Strength,Balance,Bed Mobility,Transfers Progress Towards Goals Slow Progress due to Pain Assessment Summary Completed caregiver training w / pts who was able to correctly appyl gaitbelt and provide appropriate assistance and cues for bed mobility, transfers, ambulation, and stairs. Pt ambulated ~70 ft total w/ FWW and CGA, step to gait pattern improved w/ distance and cues. Pt comeplted 1 platform step x2 w / FWW and CGA provided by , cues for sequencing. Educated pt and on proper technique for entering and exiting car. Pt and state they feel ready to return home. Pt will benefit from outpatient rehab to improve ROM, gait, and tolerance for activity. Goals Bed Mobility Goal Standby Assistance Transfer Goal Standby Assistance,Front Wheeled Walker Gait Goal Standby Assistance,Front Wheel Walker Gait Distance 200 Other Goals - up/down 3 steps with L rail ascending CGA Days to Meet Goals 2 Frequency of Treatment Frequency Of Treatment Twice a Day Treatment Plan Physical Therapy Treatment Plan Bed Mobility Training,Transfer Training,Gait Training, Therapeutic Exercise,Balance Retraining,Post Op Education, Discharge Planning,Hot or Cold Pack,Neuromuscular Re-ed Other Recommendations and Next Treatment gait training with FWW; Focus transfers; stairs when able Recommendations To Nursing Amount of Assist Needed 1 Person Assist Discharge Recommendations PT Discharge Recommendations Home with Assistance, Outpatient PT Transportation Needs at Discharge Private Vehicle
--- NOTE | 2020-05-21 11:34 | PC.NURSE ---
Patient is getting ready to discharge to home, dressing to l.hip changed to coversite dressings, as does not use aquacel dressing. Given dilaudid 4mg at 0700 for discomfort and this has held he pain. She also received tylenol around 0900. IV taken out and patient tolerated well.
== END 2020-05-21 11:53 | disposition home or self-care (01) ==
LOC: OR 11:14 → AC 11:15
PROVIDERS: Admitting Provider Orthopaedic Surgery; PCP Family Medicine; Referring Provider Orthopaedic Surgery; Visit Provider Orthopaedic Surgery
PROC: 0SRB0JZ Replacement of Left Hip Joint with Synthetic Substitute, Open Approach (ICD-10-PCS; CPT 27130; principal; 2020-05-19 12:45)
DX: M16.12 Unilateral primary osteoarthritis, left hip (principal); E66.9 Obesity, unspecified; K70.30 Alcoholic cirrhosis of liver without ascites; I10 Essential (primary) hypertension; G25.81 Restless legs syndrome
CPT/HCPCS: 27130; 36415; 72170; 85014; 85018; 97116; 97161; 97530; C1776; G0378; J0690; J1170; J1885; J2250; J2270; J2704; J2795; J3010

== ENCOUNTER 2020-06-25 10:30 | Outpatient (RCR) | payer MEDICARE, OTHER, SELFPAY ==
--- NOTE | 2020-05-13 18:07 | PT.OIE ---
Current Diagnoses Unilateral primary osteoarthritis, unspecified hip (05/13/20) Past Medical History (Last Updated 05/12/20 @ 13:22 by Mabel Martin RN) Alcoholic cirrhosis (Chronic) Alcoholism (Chronic) Anxiety (Inactive ~2013) Bradycardia (Acute) Carpal tunnel syndrome (Chronic ~2011) Cervical radiculopathy due to trauma (Resolved Unknown) Chicken pox (Resolved ~1961) Depression (Chronic ~1989) Gastric ulcer (Chronic ~2017) Hypertension (Chronic Unknown) Insomnia (Chronic Unknown) Mumps (Resolved ~1964) Osteoarthritis (Acute) Plantar warts (Inactive ~1979) Pneumonia (Acute) Restless leg syndrome (Chronic Unknown) Shoulder pain (Inactive ~1994) Sleep apnea (Inactive ~2000) Substance abuse (Inactive ~1974) Past Surgical History (Last Updated 05/12/20 @ 13:21 by Mabel Martin RN) H/O shoulder surgery (Inactive 2012) History of cholecystectomy (Inactive 2013) History of tubal ligation (Inactive) Hx of section (Resolved Unknown) Hx of LASIK (Acute 1999) Hx of shoulder surgery (Resolved) Visit Care Team Role Provider Type Mahnaz Marshall DO Primary Care Provider Physician Specialty: Family Practice Address: [address] [place] [address], [facility] Email: [email or web address] David Dumas MD Attending Provider Physician Referring Provider Specialty: Orthopedic Surgery Address: [address] [place] [address], [facility] Email: [email or web address] Physical Therapy Initial Evaluation PT-OP-A Visit Information Start: 05/11/20 18:12 Freq: Status: Active Protocol: Document 05/13/20 08:16 LRN (Rec: 05/13/20 09:07 LRN [id number]) Out-Patient Physical Therapy Visit Information Visit Information Visit Type Initial Evaluation Visit Start Time 08:16 Visit Stop Time 09:06 Total Visit Minutes 50 Visit Number 1 Evaluation Information Evaluation Date 05/13/20 Precautions Precautions Dizziness, Depression PT-OP-B Current Condition Start: 05/11/20 18:12 Freq: Status: Active Protocol: Document 05/13/20 08:16 LRN (Rec: 05/13/20 09:07 LRN [id number]) Current Condition History of Current Condition Onset Date 10/2017 Current Complaints Pain in L hip and spasms in medial thigh and swollen knee. History of Current Condition Was walking with group of girls for 6 weeks, and around the last part of the 6 weeks she noticed pain onset. Now scheduled for L posterior ISAIAH Now pain is intermittent and worsens through the day. Takes arthritis Tylenol. Sometimes the L hip gives out. Sits on couch but has a lift chair and would like to know if she should use it. Pt also states she plans on using the backside entrance to her home because there are no stairs. She will have to walk 50' to get to the back. Future Testing and Treatments Planned 05/19/20 planned L posterior ISAIAH. 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 Pt would like to be able to drive. Prior Functional Status Baseline Function- ADL's Independent Baseline Function- Mobility Independent Baseline Function- Gait Limps with gait in evenings. Doesn't use an assistive device for gait. Baseline Function- Recreation/Hobbies Gardening by bending over at hips. Current Functional Impairments (Reported) Functional Limitations- ADL's 2 steps to enter, 1 rail on L side, 1 step at time leading with RLE, ascending/descending . Functional Limitations- Mobility/Gait Limps with gait in evenings. Doesn't use an assistive device for gait (same as previous impairment above since she is pre-operative condition). Functional Limitations- Recreation/ Gardening by bending over at Hobbies hips (same as previous impairment above since she is pre-operative condition).. Personal Factors Other Personal Factors That May Effect Lives with spouse and 2 dogs ( Therapy/Recovery small & big). Depression. PT-OP-C Subjective Start: 05/11/20 18:12 Freq: Status: Active Protocol: Document 05/13/20 08:16 LRN (Rec: 05/13/20 09:07 [facility] [id number]) OP-PT Subjective Patient Comments Patient Comments Sometimes uses a cANE BUT NOT OFTEN. Patient Questionnaires Lower Extremity Functional Scale LEFS Score 10 LEFS Impairment 80 to 99% Impaired (Score 1-16 ) OP-PT Pain Assessment Pain Assessment Grid Paper Pain Assessment Grid Completed Yes Location L hip and upper back Intensity 5 Scale Used Numeric (0 - 10) Description Aching Frequency Intermittent Other Pain Aggravating Factors Trouble sleeping. Can't lay on L side L groin Intensity 6 Scale Used Numeric (0 - 10) Description Aching Frequency Intermittent Pain Duration In evening L medial thigh Intensity 5 Scale Used Numeric (0 - 10) Description Spasm Frequency Intermittent PT-OP-E Functional Tests Start: 05/11/20 18:12 Freq: Status: Active Protocol: Document 05/13/20 08:16 LRN (Rec: 05/13/20 09:07 LRN [id number]) Functional Tests Timed Up and Go (TUG) Score 17 TUG Impairment Rating 60 to <80% Impaired (Score 16- 17) PT-OP-G Mobility & Gait Start: 05/11/20 18:12 Freq: Status: Active Protocol: Document 05/13/20 08:16 LRN (Rec: 05/13/20 09:07 LRN [id number]) OP Mobility Evaluation Bed Mobility Supine to and from Sit Independent adhering to ISAIAH precautions. Transfers Sit to Stand Independent adhering to ISAIAH precautions. OP Gait Assessment Gait Gait Assistance Required: Independent Distance (Feet) 100 Able to Maintain Weight Bearing Status Yes During Gait Assistive Devices Assistive Device None,Straight Cane Gait Deviations General Gait Pattern Antalgic Comments Gait Comments Limps off L LE. Stair Climbing Evaluation Evaluation Level of Assist On Stairs Independent Devices Stair Climbing Assistive Devices Left Railing Technique/Endurance Stair Climbing Direction Ascend and Descend Stair Climbing Technique Step to Step Number of Steps Climbed 5 Stair Climbing Set # Repetitions (reps) 2 Comments Stair Climbing Comments Pt tendency is to go up/down with RLE PT-OP-K Range of Motion Start: 05/11/20 18:12 Freq: Status: Active Protocol: Document 05/13/20 08:16 LRN (Rec: 05/13/20 13:54 LRN [id number]) Hip Goniometric Range of Motion Hip Right Active Hip ROM WFL Yes Testing Position Supine Left Active Hip ROM WFL No Testing Position Supine Flexion w/Knee Flexed 80 Abduction 29 Internal Rotation 0 External Rotation 0 Hip ROM Limitations Comments Hip ext is lacking 3 deg's bilaterally. PT-OP-M Strength Start: 05/11/20 18:12 Freq: Status: Active Protocol: Document 05/13/20 08:16 LRN (Rec: 05/13/20 13:54 LRN [id number]) Hip Strength Hip Manual Muscle Testing Right Flexion (L2) 3+ Fair+ Abduction 3+ Fair+ Adduction 3 Fair External Rotation 3 Fair Internal Rotation 5 Normal Left Flexion (L2) 3 Fair Extension (S1) 1 Trace Abduction 2 Poor Adduction 2- Poor- External Rotation 2 Poor Internal Rotation 1 Trace PT-OP-Q Treatments Start: 05/11/20 18:12 Freq: Status: Active Protocol: Document 05/13/20 08:16 LRN (Rec: 05/13/20 09:07 LRN [id number]) Therapeutic Exercises Supine Exercises Hip AB Supine Exercise Name Hip AB Side left Reps/Minutes 5x Heel slides Supine Exercise Name Heel slides Side left Reps/Minutes 3x Glut set Supine Exercise Name Glut set Side bilateral Reps/Minutes 5 hold x 3 QS Supine Exercise Name QS Side left Reps/Minutes 5 hold x 3 Ankle pumps Supine Exercise Name Ankle pumps Side left Reps/Minutes 5x Therapeutic Activity Therapeutic Activity Sit<-> Supine Name Sit <-> Supine transfer training following L posterior ISAIAH precautions. Reps/Minutes 3' Sit <-> Stand Name Sit <-> Stand transfer training following L posterior ISAIAH precautions. Reps/Minutes 3' Gait Training Gait Activity Stairs Description Ascending/descending with a step to gait. Device Used rail on left Level of Assistance verbal cuing Distance/Duration 5 steps x 2 Level Description Gait with WBAT on left Device Used 4WW Level of Assistance verbal cuing Surface level Distance/Duration 50' Treatment Focus Proper gait after L posterior ISAIAH. Self-Care/Home Management Treatment Education Patient Education Body Mechanics,Home Exercise Program,Pain Management Other Education Educated pt in ISAIAH precautions and reviewed through demonstration. Educated pt in s/p L ISAIAH ex's and WBAT status. Educated pt in DME that may be needed. Discussed other assistive devices, raised toilet seat, shower chair, psychology department chair, long handled shoe horn. Educated pt in proper car transfer car with ISAIAH precautions. Educated pt in proper use of cold packs for pain management . Activities Self-Care/Home Management Activities Handouts issued & reviewed for post-ISAIAH packet with HEP issued for pt to begin home exercises. PT-OP-T Assessment and Plan Start: 05/11/20 18:12 Freq: Status: Active Protocol: Document 05/13/20 08:16 LRN (Rec: 05/13/20 09:07 LRN [id number]) Physical Therapy Assessment Rehab Potential Rehabilitation Potential Excellent Evaluation Complexity Number of Personal Factors/Comorbidities 1-2 Clinical Presentation at Evaluation Stable Impairments Impairments Pain,ROM,Strength Goals Four Impairment Ascend/descend stairs with a step to gait. Short Term Goal (STG) Pt will be educated in proper step to gait for post- operative care following a posterior L ISAIAH. STG Duration 05/19/20 Three Impairment Antalgic gait. Short Term Goal (STG) Pt will be educated in safe and proper use of 4WW. STG Duration 05/19/20 Two Impairment Lacks proper knowledge of proper transfers post-op L posterior ISAIAH Short Term Goal (STG) Pt educated and independent with proper transfers appropriate for a post- operative L posterior ISAIAH. STG Duration 05/19/20 One Impairment Lacks appropriate HEP Short Term Goal (STG) Pt educated and independent with a self care program for a pre-operative L posterior ISAIAH . STG Duration 05/19/20 Alf Goal (LTG) Pt will be educated in a self care HEP for management of her L posterior ISAIAH. LTG Duration 06/03/20 Progress Towards Goals Progress Comments Pre-operative goals achieved. Assessment Summary Assessment Pt presents for pre-op L posterior ISAIAH evaluation and treatment. The pt brings in her 4WW that she plans on using post operatively and has available for her at home a raised toilet. She was able to demonstrate proper transfer from a chair and in/out of bed and had good understanding of ISAIAH precautions to follow for getting in/out of a car. She showed good understanding of ISAIAH exercises and had difficulty with movement due to hip pain. She ambulates with a normal gait pattern but could demonstrate a step to gait as expected she will have immediately post operative. She ambulates safely on stair with a step to gait, but may need spouse assist due to her habit of descending by leading with her right leg rather that the left. The pt is expected to do well with post therapy although she is starting with weakness of her L hip and slow with gait due daily progressive pain in the hip. The pt is expected to return to therapy post operatively and has appointments made. Physical Therapy Plan Frequency and Duration Plan of Care Start Date 05/13/20 Plan of Care End Date 06/03/20 Therapeutic Interventions Therapeutic Interventions Home Exercise Program,Patient/ Caregiver Education,Self-Care/ Home Management,Therapeutic Activities,Therapeutic Exercises Modalities Cold Pack/Ice Massage Next Visit Focus/Plan Next Note Type Progress Note Next Visit Plan Assess pt for post-operative L posterior ISAIAH condition with new goals to be set.
--- NOTE | 2020-05-13 18:08 | PT.OPPOC ---
Physical, Occupational & Speech Therapy At [facility] Current Diagnoses Unilateral primary osteoarthritis, unspecified hip (05/13/20) Visit Care Team Role Provider Type Mahnaz Marshall DO Primary Care Provider Physician Specialty: Family Practice Address: [address] [place] [address], [facility] [place], [address] Email: [email or web address] David Dumas MD Attending Provider Physician Referring Provider Specialty: Orthopedic Surgery Address: [address] [place] [address], [id number] Email: [email or web address] Plan Of Care PT-OP-T Assessment and Plan Start: 05/11/20 18:12 Freq: Status: Active Protocol: Document 05/13/20 08:16 LRN (Rec: 05/13/20 09:07 LRN [id number]) Physical Therapy Assessment Rehab Potential Rehabilitation Potential Excellent Evaluation Complexity Number of Personal Factors/Comorbidities 1-2 Clinical Presentation at Evaluation Stable Impairments Impairments Pain,ROM,Strength Goals Four Impairment Ascend/descend stairs with a step to gait. Short Term Goal (STG) Pt will be educated in proper step to gait for post- operative care following a posterior L ISAIAH. STG Duration 05/19/20 Three Impairment Antalgic gait. Short Term Goal (STG) Pt will be educated in safe and proper use of 4WW. STG Duration 05/19/20 Two Impairment Lacks proper knowledge of proper transfers post-op L posterior ISAIAH Short Term Goal (STG) Pt educated and independent with proper transfers appropriate for a post- operative L posterior ISAIAH. STG Duration 05/19/20 One Impairment Lacks appropriate HEP Short Term Goal (STG) Pt educated and independent with a self care program for a pre-operative L posterior ISAIAH . STG Duration 05/19/20 Binder Lockstitch Goal (LTG) Pt will be educated in a self care HEP for management of her L posterior ISAIAH. LTG Duration 06/03/20 Progress Towards Goals Progress Comments Pre-operative goals achieved. Assessment Summary Assessment Pt presents for pre-op L posterior ISAIAH evaluation and treatment. The pt brings in her 4WW that she plans on using post operatively and has available for her at home a raised toilet. She was able to demonstrate proper transfer from a chair and in/out of bed and had good understanding of ISAIAH precautions to follow for getting in/out of a car. She showed good understanding of ISAIAH exercises and had difficulty with movement due to hip pain. She ambulates with a normal gait pattern but could demonstrate a step to gait as expected she will have immediately post operative. She ambulates safely on stair with a step to gait, but may need spouse assist due to her habit of descending by leading with her right leg rather that the left. The pt is expected to do well with post therapy although she is starting with weakness of her L hip and slow with gait due daily progressive pain in the hip. The pt is expected to return to therapy post operatively and has appointments made. Physical Therapy Plan Frequency and Duration Plan of Care Start Date 05/13/20 Plan of Care End Date 06/03/20 Therapeutic Interventions Therapeutic Interventions Home Exercise Program,Patient/ Caregiver Education,Self-Care/ Home Management,Therapeutic Activities,Therapeutic Exercises Modalities Cold Pack/Ice Massage Next Visit Focus/Plan Next Note Type Progress Note Next Visit Plan Assess pt for post-operative L posterior ISAIAH condition with new goals to be set. Plan of Care Dates Plan of Care Start Date 05/13/20 Plan of Care End Date 06/03/20 Electronically Signed by: Juliane López, PT 05/13/20 [id number] Please Sign and Return: I have reviewed this Plan of Care and certify that the skilled therapy services above are required to meet the patient?s needs. Physician Signature Date Printed Name and Credentials Clinical Instructor Signature Printed Name and Credentials
[2020-05-25 12:46] VITALS: BP 140/80; PULSE 76
--- NOTE | 2020-05-25 17:01 | PT.OIE ---
Current Diagnoses Unilateral primary osteoarthritis, unspecified hip (05/25/20) Muscle weakness (generalized) (05/25/20) Unsteadiness on feet (05/25/20) Other reduced mobility (05/25/20) Past Medical History (Last Reviewed 05/19/20 @ 12:07 by David Dumas MD) Alcoholic cirrhosis (Chronic) Alcoholism (Chronic) Anxiety (Inactive ~2013) Bradycardia (Acute) Carpal tunnel syndrome (Chronic ~2011) Cervical radiculopathy due to trauma (Resolved Unknown) Chicken pox (Resolved ~1961) Depression (Chronic ~1989) Gastric ulcer (Chronic ~2017) Hypertension (Chronic Unknown) Insomnia (Chronic Unknown) Mumps (Resolved ~1964) Osteoarthritis (Acute) Plantar warts (Inactive ~1979) Pneumonia (Acute) Restless leg syndrome (Chronic Unknown) Shoulder pain (Inactive ~1994) Sleep apnea (Inactive ~2000) Substance abuse (Inactive ~1974) Past Surgical History (Last Reviewed 05/19/20 @ 12:07 by David Dumas MD) H/O shoulder surgery (Inactive 2012) History of cholecystectomy (Inactive 2013) History of tubal ligation (Inactive) Hx of section (Resolved Unknown) Hx of LASIK (Acute 1999) Hx of shoulder surgery (Resolved) Visit Care Team Role Provider Type Mahnaz Marshall DO Primary Care Provider Physician Specialty: Family Practice Address: [address] [place] [address], [id number] Email: [email or web address] David Dumas MD Attending Provider Physician Referring Provider Specialty: Orthopedic Surgery Address: [address] [place] [address], [phone] Email: [email or web address] Physical Therapy Initial Evaluation PT-OP-A Visit Information Start: 05/11/20 18:12 Freq: Status: Active Protocol: Document 05/25/20 12:46 LRN (Rec: 05/25/20 13:34 LRN [id number]) Out-Patient Physical Therapy Visit Information Visit Information Visit Type Treatment Note Visit Start Time 12:46 Visit Stop Time 13:36 Total Visit Minutes 50 Visit Number 2 Evaluation Information Evaluation Date 05/13/20 Precautions Precautions Dizziness, Depression PT-OP-B Current Condition Start: 05/11/20 18:12 Freq: Status: Active Protocol: Document 05/25/20 12:46 LRN (Rec: 05/25/20 16:29 LRN [id number]) Current Condition History of Current Condition Onset Date 05/19/20 Current Complaints S/P L ISIAAH. History of Current Condition Pt returns to physical therapy after having a L posterior ISAIAH surgery. She was in the hospital 2.5 days and has been trying to do ex's at home. She is sleeping in a recliner chair because of L knee pain when lying in her bed. She is not able to straighten the L knee due to patellar pain. She rates her L lateral hip and anterior knee pain as 4/10 . Treatment Goals Patient/Caregiver Goals Pt goals: 1) Drive 2) Walk without an assistive device 3) Ambulate up/down stairs with normal gait pattern. 4) Sleep in a bed 5) Transfer without need of walker. 4) Bend over to picker packer objects Prior Functional Status Baseline Function- ADL's Independent Baseline Function- Mobility Independent Baseline Function- Gait Limps with gait in evenings. Doesn't use an assistive device for gait. Baseline Function- Recreation/Hobbies Gardening by bending over at hips. Baseline Function- Other Stairs: 1 step at time leading with RLE, ascending/ descending, use of 1 rail. Slept in bed on back or L side . Current Functional Impairments (Reported) Functional Limitations- ADL's 1 step at time leading with LLE ascending/descending, use of railing. Functional Limitations- Mobility/Gait Ambulates with a FWW and step to gait. Functional Limitations- Recreation/ Not able to garden. Hobbies Functional Limitations- Other Not able to sleep in a bed due to L knee pain. Personal Factors Other Personal Factors That May Effect Lives with spouse and 2 dogs ( Therapy/Recovery small & big). Depression. PT-OP-C Subjective Start: 05/11/20 18:12 Freq: Status: Active Protocol: Document 05/25/20 12:46 LRN (Rec: 05/25/20 13:34 LRN [id number]) OP-PT Subjective Patient Comments Patient Comments L ISAIAH surgery 05/19/20. Has been doing hospital ex's. Leg is swollen. Didn't know the surgery was going to so involved. Pt recalled 1/3 ISAIAH precautions (no bending), she thought one was no turning around. OP-PT Pain Assessment Location L knee Pain Location Details L anterior and posterior knee Intensity 5 Scale Used Verbal L lateral hip Pain Location Details L lateral hip and thigh Intensity 5 Scale Used Verbal L groin Pain Location Details L groin Intensity 4 Scale Used Numeric (0 - 10) PT-OP-E Functional Tests Start: 05/11/20 18:12 Freq: Status: Active Protocol: Document 05/13/20 08:16 LRN (Rec: 05/13/20 09:07 LRN [id number]) Functional Tests Timed Up and Go (TUG) Score 17 TUG Impairment Rating 60 to <80% Impaired (Score 16- 17) PT-OP-G Mobility & Gait Start: 05/11/20 18:12 Freq: Status: Active Protocol: Document 05/13/20 08:16 LRN (Rec: 05/13/20 09:07 LRN [id number]) OP Mobility Evaluation Bed Mobility Supine to and from Sit Independent adhering to ISAIAH precautions. Transfers Sit to Stand Independent adhering to ISAIAH precautions. OP Gait Assessment Gait Gait Assistance Required: Independent Distance (Feet) 100 Able to Maintain Weight Bearing Status Yes During Gait Assistive Devices Assistive Device None,Straight Cane Gait Deviations General Gait Pattern Antalgic Comments Gait Comments Limps off L LE. Stair Climbing Evaluation Evaluation Level of Assist On Stairs Independent Devices Stair Climbing Assistive Devices Left Railing Technique/Endurance Stair Climbing Direction Ascend and Descend Stair Climbing Technique Step to Step Number of Steps Climbed 5 Stair Climbing Set # Repetitions (reps) 2 Comments Stair Climbing Comments Pt tendency is to go up/down with RLE PT-OP-H Neuro Start: 05/11/20 18:12 Freq: Status: Active Protocol: Document 05/25/20 12:46 LRN (Rec: 05/25/20 13:34 LRN [id number]) Vital Signs Pulse Start Pulse at Rest (bpm) 76 Blood Pressure Sitting Blood Pressure (90/60-120/80 mmHg) 140/80 H Blood Pressure Source Manual Cuff,Left Upper Extremity PT-OP-K Range of Motion Start: 05/11/20 18:12 Freq: Status: Active Protocol: Document 05/25/20 12:46 LRN (Rec: 05/25/20 13:34 LRN [id number]) Hip Goniometric Range of Motion Hip Right Active Hip ROM WFL Yes Testing Position Supine Flexion w/Knee Flexed 105 Extension 0 Left Active Hip ROM WFL No Flexion w/Knee Flexed 70 Extension 15 Knee Goniometric Range of Motion Knee Right Patient Position Supine Flexion Active (degrees) 135 Extension Active (degrees) 0 Left Knee ROM WFL Yes Patient Position Supine Flexion Active (degrees) 120 Extension Active (degrees) 20 Knee ROM Limitations Knee ROM Limitations Pain Comments L patellar knee pain. PT-OP-M Strength Start: 05/11/20 18:12 Freq: Status: Active Protocol: Document 05/25/20 12:46 LRN (Rec: 05/25/20 13:34 LRN [id number]) Hip Strength Hip Manual Muscle Testing Right Flexion (L2) 3+ Fair+ Abduction 3+ Fair+ Adduction 3 Fair External Rotation 3 Fair Internal Rotation 5 Normal Left Flexion (L2) 2- Poor- Abduction 1 Trace Adduction 1 Trace Comments Deferred testing of hip rotators, extensor and adductor due to movement precautions. PT-OP-Q Treatments Start: 05/11/20 18:12 Freq: Status: Active Protocol: Document 05/25/20 12:46 LRN (Rec: 05/25/20 13:34 LRN [id number]) Therapeutic Exercises Supine Exercises Hip AB Supine Exercise Name Hip AB Side left Reps/Minutes 15x Heel slides Supine Exercise Name Heel slides Side left Reps/Minutes 15x Glut set Supine Exercise Name Glut set Side bilateral Reps/Minutes 5 hold x 15 QS Supine Exercise Name QS Side left Reps/Minutes 5 hold x 10 Ankle pumps Supine Exercise Name Ankle pumps Side left Reps/Minutes 30x Self-Care/Home Management Treatment Education Patient Education Safety Other Education Reviewed, discussed, educated, and demonstrated posterior L ISAIAH precautions. Activities Self-Care/Home Management Activities Pt I/S to become familiar with ISAIAH precautions and implications to daily activities. Pt I/S on edema management. PT-OP-R Modalities Start: 05/11/20 18:12 Freq: Status: Active Protocol: Document 05/25/20 12:46 LRN (Rec: 05/25/20 13:34 LRN [id number]) Hot Pack/Cold Pack Treatment Cold Pack Location L hip Patient Position Supine Treatment Duration (minutes) 10 Comments Supine with LLE elevated for edema. PT-OP-T Assessment and Plan Start: 05/11/20 18:12 Freq: Status: Active Protocol: Document 05/25/20 12:46 LRN (Rec: 05/25/20 13:34 LRN [id number]) Physical Therapy Assessment Rehab Potential Rehabilitation Potential Excellent Evaluation Complexity Number of Personal Factors/Comorbidities 1-2 Number of Body Systems Impaired 4 or More Clinical Presentation at Evaluation Evolving Impairments Impairments Balance,Edema,Gait,Pain,ROM, Soft Tissue Mobility,Strength Other Concerns Age Related Concerns Increased Blood pressure: 140/ 80 Barriers to Rehabilitation Hx of Vertigo Goals Five Impairment Pt not able to sleep in bed Short Term Goal (STG) Improve painfree L knee ext to 0- lacking 5 deg's. STG Duration 06/01/20 Fpc Goal (LTG) Pt will be able to sleep in her own bed with tolerable hip /knee pain. LTG Duration 06/11/20 Four Impairment Ascend/descend stairs with a step to gait. Short Term Goal (STG) Pt will be educated in proper step to gait for post- operative care following a posterior L ISAIAH. STG Duration 05/25/20 (05/13/21 MET GOAL) Fpc Goal (LTG) Pt will be able to ambulate up /down stairs with a reciprocal gait pattern with 1 railing. LTG Duration 08/23/20 Three Impairment Antalgic gait. Short Term Goal (STG) Pt will be educated in safe and proper use of 4WW. STG Duration 05/25/20 (05/13/21 MET GOAL) Fpc Goal (LTG) Pt will be able to ambulate without the use of an assistive device safely. LTG Duration 08/23/20 Two Impairment Lacks proper knowledge of proper transfers post-op L posterior ISAIAH Short Term Goal (STG) Pt educated and independent with proper transfers appropriate for a post- operative L posterior ISAIAH. STG Duration 05/25/20 (05/13/21 MET GOAL) Crushing Foreman Goal (LTG) Pt will be able to recall 3/3 posterior ISAIAH precautions. LTG Duration 06/04/20 One Impairment Lacks appropriate HEP Short Term Goal (STG) Pt educated and independent with a self care program for a pre-operative L posterior ISAIAH . STG Duration 05/19/20 (05/25/20: MET GOAL) Crushing Foreman Goal (LTG) Pt will be educated in a self care HEP for management of her L posterior ISAIAH. LTG Duration 08/23/20 Assessment Summary Assessment Pt is post op day 6 of L posterior ISAIAH. She is not familiar with the ISAIAH precautions and is having difficulty transferring sit to supine. She is sleeping in her recliner chair and is now having trouble lying supine due to anterior L knee pain appears to be chondromalacia related pain. She requires use a FWW for ambulation and demonstrates decreased L hip AROM & strength. The pt will benefit from L ISAIAH rehab to return her to a prior level of function with gait, ambulation (level and stairs), sleeping, driving, and house work (picking up objects off the floor). The pt is expected to do well with therapy. Physical Therapy Plan Frequency and Duration Frequency of Treatment 2x/Week Plan of Care Start Date 05/25/20 Plan of Care End Date 08/23/20 Therapeutic Interventions Therapeutic Interventions Balance Training,Gait Training ,Home Exercise Program,Manual Therapy,Patient/Caregiver Education,Self-Care/Home Management,Soft Tissue Mobilization,Taping, Therapeutic Exercises Modalities Cold Pack/Ice Massage,Hot Packs Next Visit Focus/Plan Next Note Type Treatment Note Next Visit Plan Assess TUG. Review L ISAIAH precautions, progress L posterior ISAIAH rehab. End with CP to hip.
--- NOTE | 2020-05-25 17:01 | PT.OPPOC ---
Physical, Occupational & Speech Therapy At [facility] Current Diagnoses Unilateral primary osteoarthritis, unspecified hip (05/25/20) Muscle weakness (generalized) (05/25/20) Unsteadiness on feet (05/25/20) Other reduced mobility (05/25/20) Visit Care Team Role Provider Type Mahnaz Marshall DO Primary Care Provider Physician Specialty: [facility] Address: [address] [place] [address], [facility] [place], [address] Email: [email or web address] David Dumas MD Attending Provider Physician Referring Provider Specialty: Orthopedic Surgery Address: [address] [place] [address], [id number] Email: [email or web address] Plan Of Care PT-OP-T Assessment and Plan Start: 05/11/20 18:12 Freq: Status: Active Protocol: Document 05/25/20 12:46 LRN (Rec: 05/25/20 13:34 LRN [id number]) Physical Therapy Assessment Rehab Potential Rehabilitation Potential Excellent Evaluation Complexity Number of Personal Factors/Comorbidities 1-2 Number of Body Systems Impaired 4 or More Clinical Presentation at Evaluation Evolving Impairments Impairments Balance,Edema,Gait,Pain,ROM, Soft Tissue Mobility,Strength Other Concerns Age Related Concerns Increased Blood pressure: 140/ 80 Barriers to Rehabilitation Hx of Vertigo Goals Five Impairment Pt not able to sleep in bed Short Term Goal (STG) Improve painfree L knee ext to 0- lacking 5 deg's. STG Duration 06/01/20 Call Center Support Consultant Goal (LTG) Pt will be able to sleep in her own bed with tolerable hip /knee pain. LTG Duration 06/11/20 Four Impairment Ascend/descend stairs with a step to gait. Short Term Goal (STG) Pt will be educated in proper step to gait for post- operative care following a posterior L ISAIAH. STG Duration 05/25/20 (05/13/21 MET GOAL) Fci Goal (LTG) Pt will be able to ambulate up /down stairs with a reciprocal gait pattern with 1 railing. LTG Duration 08/23/20 Three Impairment Antalgic gait. Short Term Goal (STG) Pt will be educated in safe and proper use of 4WW. STG Duration 05/25/20 (05/13/21 MET GOAL) Fci Goal (LTG) Pt will be able to ambulate without the use of an assistive device safely. LTG Duration 08/23/20 Two Impairment Lacks proper knowledge of proper transfers post-op L posterior ISAIAH Short Term Goal (STG) Pt educated and independent with proper transfers appropriate for a post- operative L posterior ISAIAH. STG Duration 05/25/20 (05/13/21 MET GOAL) Call Center Support Consultant Goal (LTG) Pt will be able to recall 3/3 posterior ISAIAH precautions. LTG Duration 06/04/20 One Impairment Lacks appropriate HEP Short Term Goal (STG) Pt educated and independent with a self care program for a pre-operative L posterior ISAIAH . STG Duration 05/19/20 (05/25/20: MET GOAL) Fci Goal (LTG) Pt will be educated in a self care HEP for management of her L posterior ISAIAH. LTG Duration 08/23/20 Assessment Summary Assessment Pt is post op day 6 of L posterior ISAIAH. She is not familiar with the ISAIAH precautions and is having difficulty transferring sit to supine. She is sleeping in her recliner chair and is now having trouble lying supine due to anterior L knee pain appears to be chondromalacia related pain. She requires use a FWW for ambulation and demonstrates decreased L hip AROM & strength. The pt will benefit from L ISAIAH rehab to return her to a prior level of function with gait, ambulation (level and stairs), sleeping, driving, and house work (picking up objects off the floor). The pt is expected to do well with therapy. Physical Therapy Plan Frequency and Duration Frequency of Treatment 2x/Week Plan of Care Start Date 05/25/20 Plan of Care End Date 08/23/20 Therapeutic Interventions Therapeutic Interventions Balance Training,Gait Training ,Home Exercise Program,Manual Therapy,Patient/Caregiver Education,Self-Care/Home Management,Soft Tissue Mobilization,Taping, Therapeutic Exercises Modalities Cold Pack/Ice Massage,Hot Packs Next Visit Focus/Plan Next Note Type Treatment Note Next Visit Plan Assess TUG. Review L ISAIAH precautions, progress L posterior ISAIAH rehab. End with CP to hip. Plan of Care Dates Plan of Care Start Date 05/25/20 Plan of Care End Date 08/23/20 Electronically Signed by: Juliane López, PT 05/25/20 [id number] Please Sign and Return: I have reviewed this Plan of Care and certify that the skilled therapy services above are required to meet the patient?s needs. Physician Signature Date Printed Name and Credentials Clinical Instructor Signature Printed Name and Credentials
--- NOTE | 2020-05-27 17:36 | PT.OTN ---
Current Diagnoses Unilateral primary osteoarthritis, unspecified hip (05/27/20) Muscle weakness (generalized) (05/27/20) Unsteadiness on feet (05/27/20) Other reduced mobility (05/27/20) Physical Therapy Treatment Note PT-OP-A Visit Information Start: 05/11/20 18:12 Freq: Status: Active Protocol: Document 05/27/20 09:50 LRN (Rec: 05/27/20 10:34 LRN [id number]) Out-Patient Physical Therapy Visit Information Visit Information Visit Type Treatment Note Visit Start Time 09:50 Visit Stop Time 10:34 Total Visit Minutes 44 Visit Number 3 Evaluation Information Evaluation Date 05/13/20 Precautions Precautions Dizziness, Depression PT-OP-B Current Condition Start: 05/11/20 18:12 Freq: Status: Active Protocol: Document 05/25/20 12:46 LRN (Rec: 05/25/20 16:29 LRN [id number]) Current Condition History of Current Condition Onset Date 05/19/20 Current Complaints S/P L ISAIAH. History of Current Condition Pt returns to physical therapy after having a L posterior ISAIAH surgery. She was in the hospital 2.5 days and has been trying to do ex's at home. She is sleeping in a recliner chair because of L knee pain when lying in her bed. She is not able to straighten the L knee due to patellar pain. She rates her L lateral hip and anterior knee pain as 4/10 . Treatment Goals Patient/Caregiver Goals Pt goals: 1) Drive 2) Walk without an assistive device 3) Ambulate up/down stairs with normal gait pattern. 4) Sleep in a bed 5) Transfer without need of walker. 4) Bend over to burr picker objects Prior Functional Status Baseline Function- ADL's Independent Baseline Function- Mobility Independent Baseline Function- Gait Limps with gait in evenings. Doesn't use an assistive device for gait. Baseline Function- Recreation/Hobbies Gardening by bending over at hips. Baseline Function- Other Stairs: 1 step at time leading with RLE, ascending/ descending, use of 1 rail. Slept in bed on back or L side . Current Functional Impairments (Reported) Functional Limitations- ADL's 1 step at time leading with LLE ascending/descending, use of railing. Functional Limitations- Mobility/Gait Ambulates with a FWW and step to gait. Functional Limitations- Recreation/ Not able to garden. Hobbies Functional Limitations- Other Not able to sleep in a bed due to L knee pain. Personal Factors Other Personal Factors That May Effect Lives with spouse and 2 dogs ( Therapy/Recovery small & big). Depression. PT-OP-C Subjective Start: 05/11/20 18:12 Freq: Status: Active Protocol: Document 05/27/20 09:50 LRN (Rec: 05/27/20 10:34 LRN [id number]) OP-PT Subjective Patient Comments Patient Comments States she was feeling so good yesterday that she was walking without her walker. Thinks she over did it because of cramping with restless legs yesterday afternoon and is more sore today, pain rated 4-5/10. PT-OP-E Functional Tests Start: 05/11/20 18:12 Freq: Status: Active Protocol: Document 05/27/20 09:50 LRN (Rec: 05/27/20 10:34 LRN [id number]) Functional Tests Timed Up and Go (TUG) Score 27 Comments Post-op L ISAIAH TUG Impairment Rating 100% Impaired (Score 20) PT-OP-G Mobility & Gait Start: 05/11/20 18:12 Freq: Status: Active Protocol: Document 05/13/20 08:16 LRN (Rec: 05/13/20 09:07 LRN [id number]) OP Mobility Evaluation Bed Mobility Supine to and from Sit Independent adhering to ISAIAH precautions. Transfers Sit to Stand Independent adhering to ISAIAH precautions. OP Gait Assessment Gait Gait Assistance Required: Independent Distance (Feet) 100 Able to Maintain Weight Bearing Status Yes During Gait Assistive Devices Assistive Device None,Straight Cane Gait Deviations General Gait Pattern Antalgic Comments Gait Comments Limps off L LE. Stair Climbing Evaluation Evaluation Level of Assist On Stairs Independent Devices Stair Climbing Assistive Devices Left Railing Technique/Endurance Stair Climbing Direction Ascend and Descend Stair Climbing Technique Step to Step Number of Steps Climbed 5 Stair Climbing Set # Repetitions (reps) 2 Comments Stair Climbing Comments Pt tendency is to go up/down with RLE PT-OP-H Neuro Start: 05/11/20 18:12 Freq: Status: Active Protocol: Document 05/25/20 12:46 LRN (Rec: 05/25/20 13:34 LRN [id number]) Vital Signs Pulse Start Pulse at Rest (bpm) 76 Blood Pressure Sitting Blood Pressure (90/60-120/80 mmHg) 140/80 H Blood Pressure Source Manual Cuff,Left Upper Extremity PT-OP-K Range of Motion Start: 05/11/20 18:12 Freq: Status: Active Protocol: Document 05/25/20 12:46 LRN (Rec: 05/25/20 13:34 LRN [id number]) Hip Goniometric Range of Motion Hip Right Active Hip ROM WFL Yes Testing Position Supine Flexion w/Knee Flexed 105 Extension 0 Left Active Hip ROM WFL No Flexion w/Knee Flexed 70 Extension 15 Knee Goniometric Range of Motion Knee Right Patient Position Supine Flexion Active (degrees) 135 Extension Active (degrees) 0 Left Knee ROM WFL Yes Patient Position Supine Flexion Active (degrees) 120 Extension Active (degrees) 20 Knee ROM Limitations Knee ROM Limitations Pain Comments L patellar knee pain. PT-OP-M Strength Start: 05/11/20 18:12 Freq: Status: Active Protocol: Document 05/25/20 12:46 LRN (Rec: 05/25/20 13:34 LRN [id number]) Hip Strength Hip Manual Muscle Testing Right Flexion (L2) 3+ Fair+ Abduction 3+ Fair+ Adduction 3 Fair External Rotation 3 Fair Internal Rotation 5 Normal Left Flexion (L2) 2- Poor- Abduction 1 Trace Adduction 1 Trace Comments Deferred testing of hip rotators, extensor and adductor due to movement precautions. PT-OP-Q Treatments Start: 05/11/20 18:12 Freq: Status: Active Protocol: Document 05/27/20 09:50 LRN (Rec: 05/27/20 10:34 LRN [id number]) Therapeutic Exercises Supine Exercises Hip AD Supine Exercise Name Stretch to hip AD's Reps/Minutes 30 x 2 Bridging Supine Exercise Name Bridging Reps/Minutes 8 rep x 2 Heel slides Supine Exercise Name Heel slides Side left Reps/Minutes 8x 2 Glut set Supine Exercise Name Glut set Side bilateral Reps/Minutes 5 hold x 15 QS Supine Exercise Name SAQ w/QS Side bilateral Equipment Used Green short bolster Reps/Minutes 5 hold x 8 Standing Exercises Squats Standing Exercise Name Shallow squats Reps/Minutes 30x Manual Therapy Treatment Soft Tissue Mobilization L hip AD Body Location L hip AD Mobilization Type Trigger Point Release Intensity/Depth Superficial Comments Position: Supine with pillow under leg. Iliacus Body Location Iliacus Mobilization Type Sustained Pressure Intensity/Depth Superficial Body Position Hooklying L Quad Body Location L Quad Mobilization Type Strumming Intensity/Depth Moderate Comments Pt supine with pillow under leg. Pt had to shift out of position many times. Self-Care/Home Management Treatment Education Patient Education Joint Protection Other Education I/S pt in use of self trigger point treatment to Iliacus and L hip AD's to decrease ms pain. Educated pt in goals for rehab and to not try to restart hip stretches until at least 6-8 wks post op. Activities Self-Care/Home Management Activities Reviewed ISAIAH precautions, pt able to recall 3/3. Reviewed movement precautions with transfer on/off plinth. Pt showed good understanding. PT-OP-R Modalities Start: 05/11/20 18:12 Freq: Status: Active Protocol: Document 05/27/20 09:50 LRN (Rec: 05/27/20 10:34 LRN [id number]) Hot Pack/Cold Pack Treatment Cold Pack Location L hip Patient Position Supine Treatment Duration (minutes) 8 Comments Supine with LLE elevated for edema. PT-OP-T Assessment and Plan Start: 05/11/20 18:12 Freq: Status: Active Protocol: Document 05/27/20 09:50 LRN (Rec: 05/27/20 10:34 LRN [id number]) Physical Therapy Assessment Goals Five Impairment Pt not able to sleep in bed Short Term Goal (STG) Improve painfree L knee ext to 0- lacking 5 deg's. STG Duration 06/01/20 Shipper/Receiver Goal (LTG) Pt will be able to sleep in her own bed with tolerable hip /knee pain. LTG Duration 06/11/20 Four Impairment Ascend/descend stairs with a step to gait. Short Term Goal (STG) Pt will be educated in proper step to gait for post- operative care following a posterior L ISAIAH. STG Duration 05/25/20 (05/13/21 MET GOAL) Usp Goal (LTG) Pt will be able to ambulate up /down stairs with a reciprocal gait pattern with 1 railing. LTG Duration 08/23/20 Three Impairment Antalgic gait. Short Term Goal (STG) Pt will be educated in safe and proper use of 4WW. STG Duration 05/25/20 (05/13/21 MET GOAL) Usp Goal (LTG) Pt will be able to ambulate without the use of an assistive device safely. LTG Duration 08/23/20 Two Impairment Lacks proper knowledge of proper transfers post-op L posterior ISAIAH Short Term Goal (STG) Pt educated and independent with proper transfers appropriate for a post- operative L posterior ISAIAH. STG Duration 05/25/20 (05/13/21 MET GOAL) Shipper/Receiver Goal (LTG) Pt will be able to recall 3/3 posterior ISAIAH precautions. LTG Duration 06/04/20 One Impairment Lacks appropriate HEP Short Term Goal (STG) Pt educated and independent with a self care program for a pre-operative L posterior ISAIAH . STG Duration 05/19/20 (05/25/20: MET GOAL) Usp Goal (LTG) Pt will be educated in a self care HEP for management of her L posterior ISAIAH. LTG Duration 08/23/20 Assessment Summary Assessment Per TUG, pt is 100% impaired since surgery (pre-op was 60< 80% impaired). Poor tolerance to placing L LE in neutral due to L knee pain and ms spasms of the thigh. Pt had fair tolerance of ex today, probable due to over activity yesterday. Low tolerance to positioning on ice due to restless legs. Physical Therapy Plan Frequency and Duration Frequency of Treatment 2x/Week Plan of Care Start Date 05/25/20 Plan of Care End Date 08/23/20 Next Visit Focus/Plan Next Note Type Treatment Note Next Visit Plan Progress L posterior ISAIAH rehab towards return to function. End with CP to hip.
--- NOTE | 2020-05-31 10:13 | PT.OTN ---
Current Diagnoses Unilateral primary osteoarthritis, unspecified hip (05/31/20) Muscle weakness (generalized) (05/31/20) Unsteadiness on feet (05/31/20) Other reduced mobility (05/31/20) Physical Therapy Treatment Note PT-OP-A Visit Information Start: 05/11/20 18:12 Freq: Status: Active Protocol: Document 05/31/20 09:04 LRN (Rec: 05/31/20 09:51 LRN [id number]) Out-Patient Physical Therapy Visit Information Visit Information Visit Type Treatment Note Visit Start Time 09:04 Visit Stop Time 09:50 Total Visit Minutes 46 Visit Number 4 Evaluation Information Evaluation Date 05/13/20 Precautions Precautions Dizziness, Depression PT-OP-B Current Condition Start: 05/11/20 18:12 Freq: Status: Active Protocol: Document 05/25/20 12:46 LRN (Rec: 05/25/20 16:29 LRN [id number]) Current Condition History of Current Condition Onset Date 05/19/20 Current Complaints S/P L ISAIAH. History of Current Condition Pt returns to physical therapy after having a L posterior ISAIAH surgery. She was in the hospital 2.5 days and has been trying to do ex's at home. She is sleeping in a recliner chair because of L knee pain when lying in her bed. She is not able to straighten the L knee due to patellar pain. She rates her L lateral hip and anterior knee pain as 4/10 . Treatment Goals Patient/Caregiver Goals Pt goals: 1) Drive 2) Walk without an assistive device 3) Ambulate up/down stairs with normal gait pattern. 4) Sleep in a bed 5) Transfer without need of walker. 4) Bend over to berry picker objects Prior Functional Status Baseline Function- ADL's Independent Baseline Function- Mobility Independent Baseline Function- Gait Limps with gait in evenings. Doesn't use an assistive device for gait. Baseline Function- Recreation/Hobbies Gardening by bending over at hips. Baseline Function- Other Stairs: 1 step at time leading with RLE, ascending/ descending, use of 1 rail. Slept in bed on back or L side . Current Functional Impairments (Reported) Functional Limitations- ADL's 1 step at time leading with LLE ascending/descending, use of railing. Functional Limitations- Mobility/Gait Ambulates with a FWW and step to gait. Functional Limitations- Recreation/ Not able to garden. Hobbies Functional Limitations- Other Not able to sleep in a bed due to L knee pain. Personal Factors Other Personal Factors That May Effect Lives with spouse and 2 dogs ( Therapy/Recovery small & big). Depression. PT-OP-C Subjective Start: 05/11/20 18:12 Freq: Status: Active Protocol: Document 05/31/20 09:04 LRN (Rec: 05/31/20 09:51 LRN [id number]) OP-PT Subjective Patient Comments Patient Comments Seeing MD tomorrow. Doing well, but only able to sleep in bed for 1st part of night. PT-OP-E Functional Tests Start: 05/11/20 18:12 Freq: Status: Active Protocol: Document 05/27/20 09:50 LRN (Rec: 05/27/20 10:34 LRN [id number]) Functional Tests Timed Up and Go (TUG) Score 27 Comments Post-op L ISAIAH TUG Impairment Rating 100% Impaired (Score 20) PT-OP-G Mobility & Gait Start: 05/11/20 18:12 Freq: Status: Active Protocol: Document 05/13/20 08:16 LRN (Rec: 05/13/20 09:07 LRN [id number]) OP Mobility Evaluation Bed Mobility Supine to and from Sit Independent adhering to ISAIAH precautions. Transfers Sit to Stand Independent adhering to ISAIAH precautions. OP Gait Assessment Gait Gait Assistance Required: Independent Distance (Feet) 100 Able to Maintain Weight Bearing Status Yes During Gait Assistive Devices Assistive Device None,Straight Cane Gait Deviations General Gait Pattern Antalgic Comments Gait Comments Limps off L LE. Stair Climbing Evaluation Evaluation Level of Assist On Stairs Independent Devices Stair Climbing Assistive Devices Left Railing Technique/Endurance Stair Climbing Direction Ascend and Descend Stair Climbing Technique Step to Step Number of Steps Climbed 5 Stair Climbing Set # Repetitions (reps) 2 Comments Stair Climbing Comments Pt tendency is to go up/down with RLE PT-OP-H Neuro Start: 05/11/20 18:12 Freq: Status: Active Protocol: Document 05/25/20 12:46 LRN (Rec: 05/25/20 13:34 LRN [id number]) Vital Signs Pulse Start Pulse at Rest (bpm) 76 Blood Pressure Sitting Blood Pressure (90/60-120/80 mmHg) 140/80 H Blood Pressure Source Manual Cuff,Left Upper Extremity PT-OP-K Range of Motion Start: 05/11/20 18:12 Freq: Status: Active Protocol: Document 05/25/20 12:46 LRN (Rec: 05/25/20 13:34 LRN [id number]) Hip Goniometric Range of Motion Hip Right Active Hip ROM WFL Yes Testing Position Supine Flexion w/Knee Flexed 105 Extension 0 Left Active Hip ROM WFL No Flexion w/Knee Flexed 70 Extension 15 Knee Goniometric Range of Motion Knee Right Patient Position Supine Flexion Active (degrees) 135 Extension Active (degrees) 0 Left Knee ROM WFL Yes Patient Position Supine Flexion Active (degrees) 120 Extension Active (degrees) 20 Knee ROM Limitations Knee ROM Limitations Pain Comments L patellar knee pain. PT-OP-M Strength Start: 05/11/20 18:12 Freq: Status: Active Protocol: Document 05/25/20 12:46 LRN (Rec: 05/25/20 13:34 LRN [id number]) Hip Strength Hip Manual Muscle Testing Right Flexion (L2) 3+ Fair+ Abduction 3+ Fair+ Adduction 3 Fair External Rotation 3 Fair Internal Rotation 5 Normal Left Flexion (L2) 2- Poor- Abduction 1 Trace Adduction 1 Trace Comments Deferred testing of hip rotators, extensor and adductor due to movement precautions. PT-OP-Q Treatments Start: 05/11/20 18:12 Freq: Status: Active Protocol: Document 05/31/20 09:04 LRN (Rec: 05/31/20 09:51 LRN [id number]) Therapeutic Exercises Supine Exercises Yana hip ADD Supine Exercise Name Yana Hip ADD Side bilateral Reps/Minutes 3 hold x 6 Hip AD Supine Exercise Name Stretch to hip AD's Reps/Minutes 60 x 2 Bridging Supine Exercise Name Bridging Reps/Minutes 10 rep x 3 Hip AB Supine Exercise Name Hip AB Side left Reps/Minutes 10x, 5x Comments Phys assist needed to keep hip AB isolated from trunk Heel slides Supine Exercise Name Heel slides Side left Reps/Minutes 10x 2, 7x QS Supine Exercise Name SAQ w/QS Side bilateral Equipment Used Green short bolster Reps/Minutes 10x 3 Standing Exercises Marching Standing Exercise Name Marching Side bilateral Reps/Minutes 10x Comments Phys & V. cuing needed to keep hip from lifting Hip Ext Standing Exercise Name Hip Ext Reps/Minutes 10x Comments V. cuing needed to keep hip from lifting Hip AB Standing Exercise Name Hip AB Reps/Minutes 10x Squats Standing Exercise Name Shallow squats Reps/Minutes 30x Comments Much phys and v. cuing to keep knees over ankles. Gait Training Gait Activity Wgt Shifting Description Wgt shifting no futher than navel over fooft Device Used Ballet Bar Surface Level Distance/Duration 3' Level Description Standing with feet as cloes as comfortable. Distance/Duration 2' Self-Care/Home Management Treatment Education Patient Education Home Exercise Program Activities Self-Care/Home Management Activities Issued & reviewed HEP: Standing hip flex, AB, Ext. PT-OP-R Modalities Start: 05/11/20 18:12 Freq: Status: Active Protocol: Document 05/31/20 09:04 LRN (Rec: 05/31/20 09:51 LRN [id number]) Hot Pack/Cold Pack Treatment Cold Pack Location L hip Patient Position Supine Treatment Duration (minutes) 10 Comments Supine with LLE elevated for edema. PT-OP-T Assessment and Plan Start: 05/11/20 18:12 Freq: Status: Active Protocol: Document 05/31/20 09:04 LRN (Rec: 05/31/20 09:51 LRN [id number]) Physical Therapy Assessment Rehab Potential Rehabilitation Potential Excellent Evaluation Complexity Number of Personal Factors/Comorbidities 1-2 Number of Body Systems Impaired 4 or More Clinical Presentation at Evaluation Evolving Impairments Impairments Balance,Edema,Gait,Pain,ROM, Soft Tissue Mobility,Strength Goals Six Impairment Mild Antalgic Gait Tourist Escort Goal (LTG) Pt will be able to ambulate with a normal gait pattern. LTG Duration 06/21/20 Five Impairment Pt not able to sleep in bed Short Term Goal (STG) Improve painfree L knee ext to 0- lacking 5 deg's. STG Duration 06/01/20 Chcf Goal (LTG) Pt will be able to sleep in her own bed with tolerable hip /knee pain. LTG Duration 06/11/20 Four Impairment Ascend/descend stairs with a step to gait. Short Term Goal (STG) Pt will be educated in proper step to gait for post- operative care following a posterior L ISAIAH. STG Duration 05/25/20 (05/13/21 MET GOAL) Tourist Escort Goal (LTG) Pt will be able to ambulate up /down stairs with a reciprocal gait pattern with 1 railing. LTG Duration 08/23/20 Three Impairment Antalgic gait. Short Term Goal (STG) Pt will be educated in safe and proper use of 4WW. STG Duration 05/25/20 (05/13/21 MET GOAL) Tourist Escort Goal (LTG) Pt will be able to ambulate without the use of an assistive device safely. LTG Duration 08/23/20 (05/31/20: MET GOAL) Two Impairment Lacks proper knowledge of proper transfers post-op L posterior ISAIAH Short Term Goal (STG) Pt educated and independent with proper transfers appropriate for a post- operative L posterior ISAIAH. STG Duration 05/25/20 (05/13/21 MET GOAL) Tourist Escort Goal (LTG) Pt will be able to recall 3/3 posterior ISAIAH precautions. LTG Duration 06/04/20 (05/31/20: MET GOAL) One Impairment Lacks appropriate HEP Short Term Goal (STG) Pt educated and independent with a self care program for a pre-operative L posterior ISAIAH . STG Duration 05/19/20 (05/25/20: MET GOAL) Tourist Escort Goal (LTG) Pt will be educated in a self care HEP for management of her L posterior ISAIAH. LTG Duration 08/23/20 (05/31/20: Progressing Progress Towards Goals Progress Towards Goals Progressing Toward Goals Progress Comments Goals 2 & 3 MET. She comes in today able to demonstrate ability to ambulate without use of cane. She has a mild antalgic gait due to poor toe off, probably from lack of SLS tolerance. Improved gait mechanics after wgt shifting exercise. Pt is now able to recall 3/3 ISAIAH precautions. Assessment Summary Assessment Pt walks into therapy with SPC and mild antalgic gait with L leg held out to side in AB with gait. Very good tolerance to increased ex with minimal c/o pain. Pt was able to sleep in her bed for first 1/2 of night. Pt has good recall of ISAIAH precautions and demonstrates proper transfers sit<->stand and Sit< ->Supine. Physical Therapy Plan Frequency and Duration Frequency of Treatment 2x/Week Plan of Care Start Date 05/25/20 Plan of Care End Date 08/23/20 Therapeutic Interventions Therapeutic Interventions Balance Training,Gait Training ,Home Exercise Program,Manual Therapy,Patient/Caregiver Education,Self-Care/Home Management,Soft Tissue Mobilization,Taping, Therapeutic Exercises Modalities Cold Pack/Ice Massage,Hot Packs Next Visit Focus/Plan Next Note Type Treatment Note Next Visit Plan Progress L posterior ISAIAH rehab towards normal gait on level and stairs and return to prior function of sleeping in bed.. End with CP to hip.
--- NOTE | 2020-05-31 10:14 | PT.OPPOC ---
Physical, Occupational & Speech Therapy At [facility] Current Diagnoses Unilateral primary osteoarthritis, unspecified hip (05/31/20) Muscle weakness (generalized) (05/31/20) Unsteadiness on feet (05/31/20) Other reduced mobility (05/31/20) Visit Care Team Role Provider Type Mahnaz Marshall DO Primary Care Provider Physician Specialty: [facility] Address: [address] [place] [address], [facility] [place], [address] Email: [email or web address] David Dumas MD Attending Provider Physician Referring Provider Specialty: Orthopedic Surgery Address: [address] [place] [address], [id number] Email: [email or web address] Plan Of Care PT-OP-T Assessment and Plan Start: 05/11/20 18:12 Freq: Status: Active Protocol: Document 05/31/20 09:04 LRN (Rec: 05/31/20 09:51 LRN [id number]) Physical Therapy Assessment Rehab Potential Rehabilitation Potential Excellent Evaluation Complexity Number of Personal Factors/Comorbidities 1-2 Number of Body Systems Impaired 4 or More Clinical Presentation at Evaluation Evolving Impairments Impairments Balance,Edema,Gait,Pain,ROM, Soft Tissue Mobility,Strength Goals Six Impairment Mild Antalgic Gait Snf Goal (LTG) Pt will be able to ambulate with a normal gait pattern. LTG Duration 06/21/20 Five Impairment Pt not able to sleep in bed Short Term Goal (STG) Improve painfree L knee ext to 0- lacking 5 deg's. STG Duration 06/01/20 Snf Goal (LTG) Pt will be able to sleep in her own bed with tolerable hip /knee pain. LTG Duration 06/11/20 Four Impairment Ascend/descend stairs with a step to gait. Short Term Goal (STG) Pt will be educated in proper step to gait for post- operative care following a posterior L ISAIAH. STG Duration 05/25/20 (05/13/21 MET GOAL) Snf Goal (LTG) Pt will be able to ambulate up /down stairs with a reciprocal gait pattern with 1 railing. LTG Duration 08/23/20 Three Impairment Antalgic gait. Short Term Goal (STG) Pt will be educated in safe and proper use of 4WW. STG Duration 05/25/20 (05/13/21 MET GOAL) Tumbler Drier Operator Goal (LTG) Pt will be able to ambulate without the use of an assistive device safely. LTG Duration 08/23/20 (05/31/20: MET GOAL) Two Impairment Lacks proper knowledge of proper transfers post-op L posterior ISAIAH Short Term Goal (STG) Pt educated and independent with proper transfers appropriate for a post- operative L posterior ISAIAH. STG Duration 05/25/20 (05/13/21 MET GOAL) Tumbler Drier Operator Goal (LTG) Pt will be able to recall 3/3 posterior ISAIAH precautions. LTG Duration 06/04/20 (05/31/20: MET GOAL) One Impairment Lacks appropriate HEP Short Term Goal (STG) Pt educated and independent with a self care program for a pre-operative L posterior ISAIAH . STG Duration 05/19/20 (05/25/20: MET GOAL) Tumbler Drier Operator Goal (LTG) Pt will be educated in a self care HEP for management of her L posterior ISAIAH. LTG Duration 08/23/20 (05/31/20: Progressing Progress Towards Goals Progress Towards Goals Progressing Toward Goals Progress Comments Goals 2 & 3 MET. She comes in today able to demonstrate ability to ambulate without use of cane. She has a mild antalgic gait due to poor toe off, probably from lack of SLS tolerance. Improved gait mechanics after wgt shifting exercise. Pt is now able to recall 3/3 ISAIAH precautions. Assessment Summary Assessment Pt walks into therapy with SPC and mild antalgic gait with L leg held out to side in AB with gait. Very good tolerance to increased ex with minimal c/o pain. Pt was able to sleep in her bed for first 1/2 of night. Pt has good recall of ISAIAH precautions and demonstrates proper transfers sit<->stand and Sit< ->Supine. Physical Therapy Plan Frequency and Duration Frequency of Treatment 2x/Week Plan of Care Start Date 05/25/20 Plan of Care End Date 08/23/20 Therapeutic Interventions Therapeutic Interventions Balance Training,Gait Training ,Home Exercise Program,Manual Therapy,Patient/Caregiver Education,Self-Care/Home Management,Soft Tissue Mobilization,Taping, Therapeutic Exercises Modalities Cold Pack/Ice Massage,Hot Packs Next Visit Focus/Plan Next Note Type Treatment Note Next Visit Plan Progress L posterior ISAIAH rehab towards normal gait on level and stairs and return to prior function of sleeping in bed.. End with CP to hip. Plan of Care Dates Plan of Care Start Date 05/25/20 Plan of Care End Date 08/23/20 Electronically Signed by: Juliane López, PT 05/31/20 1014 Please Sign and Return: I have reviewed this Plan of Care and certify that the skilled therapy services above are required to meet the patient?s needs. Physician Signature Date Printed Name and Credentials Clinical Instructor Signature Printed Name and Credentials
--- NOTE | 2020-06-03 18:40 | PT.OTN ---
Current Diagnoses Unilateral primary osteoarthritis, unspecified hip (06/03/20) Muscle weakness (generalized) (06/03/20) Unsteadiness on feet (06/03/20) Other reduced mobility (06/03/20) Physical Therapy Treatment Note PT-OP-A Visit Information Start: 05/11/20 18:12 Freq: Status: Active Protocol: Document 06/03/20 09:50 LRN (Rec: 06/03/20 10:33 LRN [id number]) Out-Patient Physical Therapy Visit Information Visit Information Visit Type Treatment Note Visit Start Time 09:50 Visit Stop Time 10:40 Total Visit Minutes 50 Visit Number 5 Evaluation Information Evaluation Date 05/13/20 Precautions Precautions Dizziness, Depression PT-OP-B Current Condition Start: 05/11/20 18:12 Freq: Status: Active Protocol: Document 05/25/20 12:46 LRN (Rec: 05/25/20 16:29 LRN [id number]) Current Condition History of Current Condition Onset Date 05/19/20 Current Complaints S/P L ISAIAH. History of Current Condition Pt returns to physical therapy after having a L posterior ISAIAH surgery. She was in the hospital 2.5 days and has been trying to do ex's at home. She is sleeping in a recliner chair because of L knee pain when lying in her bed. She is not able to straighten the L knee due to patellar pain. She rates her L lateral hip and anterior knee pain as 4/10 . Treatment Goals Patient/Caregiver Goals Pt goals: 1) Drive 2) Walk without an assistive device 3) Ambulate up/down stairs with normal gait pattern. 4) Sleep in a bed 5) Transfer without need of walker. 4) Bend over to [employer] objects Prior Functional Status Baseline Function- ADL's Independent Baseline Function- Mobility Independent Baseline Function- Gait Limps with gait in evenings. Doesn't use an assistive device for gait. Baseline Function- Recreation/Hobbies Gardening by bending over at hips. Baseline Function- Other Stairs: 1 step at time leading with RLE, ascending/ descending, use of 1 rail. Slept in bed on back or L side . Current Functional Impairments (Reported) Functional Limitations- ADL's 1 step at time leading with LLE ascending/descending, use of railing. Functional Limitations- Mobility/Gait Ambulates with a FWW and step to gait. Functional Limitations- Recreation/ Not able to garden. Hobbies Functional Limitations- Other Not able to sleep in a bed due to L knee pain. Personal Factors Other Personal Factors That May Effect Lives with spouse and 2 dogs ( Therapy/Recovery small & big). Depression. PT-OP-C Subjective Start: 05/11/20 18:12 Freq: Status: Active Protocol: Document 06/03/20 09:50 LRN (Rec: 06/03/20 18:38 LRN [id number]) OP-PT Subjective Patient Comments Patient Comments Doing well. Overdid the ex last session because she was really sore the next day and couldn't do much. PT-OP-E Functional Tests Start: 05/11/20 18:12 Freq: Status: Active Protocol: Document 05/27/20 09:50 LRN (Rec: 05/27/20 10:34 LRN [id number]) Functional Tests Timed Up and Go (TUG) Score 27 Comments Post-op L ISAIAH TUG Impairment Rating 100% Impaired (Score 20) PT-OP-G Mobility & Gait Start: 05/11/20 18:12 Freq: Status: Active Protocol: Document 05/13/20 08:16 LRN (Rec: 05/13/20 09:07 LRN [id number]) OP Mobility Evaluation Bed Mobility Supine to and from Sit Independent adhering to ISAIAH precautions. Transfers Sit to Stand Independent adhering to ISAIAH precautions. OP Gait Assessment Gait Gait Assistance Required: Independent Distance (Feet) 100 Able to Maintain Weight Bearing Status Yes During Gait Assistive Devices Assistive Device None,Straight Cane Gait Deviations General Gait Pattern Antalgic Comments Gait Comments Limps off L LE. Stair Climbing Evaluation Evaluation Level of Assist On Stairs Independent Devices Stair Climbing Assistive Devices Left Railing Technique/Endurance Stair Climbing Direction Ascend and Descend Stair Climbing Technique Step to Step Number of Steps Climbed 5 Stair Climbing Set # Repetitions (reps) 2 Comments Stair Climbing Comments Pt tendency is to go up/down with RLE PT-OP-H Neuro Start: 05/11/20 18:12 Freq: Status: Active Protocol: Document 05/25/20 12:46 LRN (Rec: 05/25/20 13:34 LRN [id number]) Vital Signs Pulse Start Pulse at Rest (bpm) 76 Blood Pressure Sitting Blood Pressure (90/60-120/80 mmHg) 140/80 H Blood Pressure Source Manual Cuff,Left Upper Extremity PT-OP-K Range of Motion Start: 05/11/20 18:12 Freq: Status: Active Protocol: Document 05/25/20 12:46 LRN (Rec: 05/25/20 13:34 LRN [id number]) Hip Goniometric Range of Motion Hip Right Active Hip ROM WFL Yes Testing Position Supine Flexion w/Knee Flexed 105 Extension 0 Left Active Hip ROM WFL No Flexion w/Knee Flexed 70 Extension 15 Knee Goniometric Range of Motion Knee Right Patient Position Supine Flexion Active (degrees) 135 Extension Active (degrees) 0 Left Knee ROM WFL Yes Patient Position Supine Flexion Active (degrees) 120 Extension Active (degrees) 20 Knee ROM Limitations Knee ROM Limitations Pain Comments L patellar knee pain. PT-OP-M Strength Start: 05/11/20 18:12 Freq: Status: Active Protocol: Document 05/25/20 12:46 LRN (Rec: 05/25/20 13:34 LRN [id number]) Hip Strength Hip Manual Muscle Testing Right Flexion (L2) 3+ Fair+ Abduction 3+ Fair+ Adduction 3 Fair External Rotation 3 Fair Internal Rotation 5 Normal Left Flexion (L2) 2- Poor- Abduction 1 Trace Adduction 1 Trace Comments Deferred testing of hip rotators, extensor and adductor due to movement precautions. PT-OP-Q Treatments Start: 05/11/20 18:12 Freq: Status: Active Protocol: Document 06/03/20 09:50 LRN (Rec: 06/03/20 10:33 LRN [id number]) Therapeutic Exercises Supine Exercises SLR Supine Exercise Name Assisted SLR Side left Reps/Minutes 10x SAQ Supine Exercise Name SAQ Side left Equipment Used Green short bolster Reps/Minutes 10x Yana hip AB Supine Exercise Name Yana hip AB in max range. Side left Reps/Minutes 5 H x 6 Hip AD Supine Exercise Name Stretch to hip AD's Reps/Minutes 60 x 2 Bridging Supine Exercise Name Bridging Reps/Minutes 10 rep x 2 Hip AB Supine Exercise Name Hip AB Side left Reps/Minutes 10x, 5x Heel slides Supine Exercise Name Heel slides Side left Reps/Minutes 10x 2 QS Supine Exercise Name QS with hand towel roll under ankle Side left Reps/Minutes hold 10 x 10 Sitting Exercises Clamshell sitting Sitting Exercise Name Clamshell starting feet shldr width apart. Side bilateral Reps/Minutes 2' Standing Exercises Side stepping Standing Exercise Name Hip AB & Squat Side bilateral Equipment Used Wall Bar Reps/Minutes 10x each & each direction, length of bar Marching Standing Exercise Name Marching - alternating legs Side bilateral Reps/Minutes 10x Comments Phys & V. cuing needed to keep hip from lifting Hip Ext Standing Exercise Name Hip Ext - alternating legs Reps/Minutes 10x Comments V. cuing needed to keep hip from lifting Hip AB Standing Exercise Name Hip AB - alternating legs Reps/Minutes 10x Squats Standing Exercise Name Shallow squats Reps/Minutes 30x Comments Phys and v. cuing to flex at the hips Gait Training Gait Activity Wgt Shifting Description Wgt shifting no futher than navel over fooft Device Used Ballet Bar Surface Level Distance/Duration 3' PT-OP-R Modalities Start: 05/11/20 18:12 Freq: Status: Active Protocol: Document 06/03/20 09:50 LRN (Rec: 06/03/20 10:33 LRN [id number]) Hot Pack/Cold Pack Treatment Cold Pack Location L hip Patient Position Supine Treatment Duration (minutes) 10 Comments Supine with LLE elevated for edema. PT-OP-T Assessment and Plan Start: 05/11/20 18:12 Freq: Status: Active Protocol: Document 06/03/20 09:50 LRN (Rec: 06/03/20 10:33 LRN [id number]) Physical Therapy Assessment Goals Six Impairment Mild Antalgic Gait Correction Goal (LTG) Pt will be able to ambulate with a normal gait pattern. 06/03/20: Ambs without an assistive device with slight Trendelenburg gait to L due to avoding hip AD per precaution ). LTG Duration 06/21/20 (06/03/20: Improving stability) Five Impairment Pt not able to sleep in bed Short Term Goal (STG) Improve painfree L knee ext to 0- lacking 5 deg's. STG Duration 06/01/20 (06/03/20: MET GOAL) Adaptive Physical Education Specialist Goal (LTG) Pt will be able to sleep in her own bed with tolerable hip /knee pain. (06/03/20: Has slept in bed 2 nights comfortably). LTG Duration 06/11/20 (06/03/20: Improving ) Four Impairment Ascend/descend stairs with a step to gait. Short Term Goal (STG) Pt will be educated in proper step to gait for post- operative care following a posterior L ISAIAH. STG Duration 05/25/20 (05/13/21 MET GOAL) Correction Goal (LTG) Pt will be able to ambulate up /down stairs with a reciprocal gait pattern with 1 railing. LTG Duration 08/23/20 Three Impairment Antalgic gait. Short Term Goal (STG) Pt will be educated in safe and proper use of 4WW. STG Duration 05/25/20 (05/13/21 MET GOAL) Correction Goal (LTG) Pt will be able to ambulate without the use of an assistive device safely. LTG Duration 08/23/20 (05/31/20: MET GOAL) Two Impairment Lacks proper knowledge of proper transfers post-op L posterior ISAIAH Short Term Goal (STG) Pt educated and independent with proper transfers appropriate for a post- operative L posterior ISAIAH. STG Duration 05/25/20 (05/13/21 MET GOAL) Correction Goal (LTG) Pt will be able to recall 3/3 posterior ISAIAH precautions. LTG Duration 06/04/20 (05/31/20: MET GOAL) One Impairment Lacks appropriate HEP Short Term Goal (STG) Pt educated and independent with a self care program for a pre-operative L posterior ISAIAH . STG Duration 05/19/20 (05/25/20: MET GOAL) Correction Goal (LTG) Pt will be educated in a self care HEP for management of her L posterior ISAIAH. LTG Duration 08/23/20 (05/31/20: Progressing Progress Towards Goals Progress Comments Pt walks into therapy without and assistive device. STG #5 MET. Pt has full L knee extension ROM. Assessment Summary Assessment Pt walks into therapy WITHOUT an Assistive Device. She has a mild Trendelenburg gait on L due to lack of hip AD from following ISAIAH precautions. Physical Therapy Plan Frequency and Duration Frequency of Treatment 2x/Week Plan of Care Start Date 05/25/20 Plan of Care End Date 08/23/20 Next Visit Focus/Plan Next Note Type Treatment Note Next Visit Plan Progress L posterior ISAIAH rehab towards normal gait on level and stairs and return to prior function of consistently sleeping in bed. End with CP to hip.
--- NOTE | 2020-06-15 18:08 | PT.OTN ---
Current Diagnoses Unilateral primary osteoarthritis, unspecified hip (06/15/20) Muscle weakness (generalized) (06/15/20) Unsteadiness on feet (06/15/20) Other reduced mobility (06/15/20) Physical Therapy Treatment Note PT-OP-A Visit Information Start: 05/11/20 18:12 Freq: Status: Active Protocol: Document 06/15/20 09:47 LRN (Rec: 06/15/20 10:35 LRN [id number]) Out-Patient Physical Therapy Visit Information Visit Information Visit Type Treatment Note Visit Start Time 09:47 Visit Stop Time 10:30 Total Visit Minutes 43 Visit Number 7 Evaluation Information Evaluation Date 05/13/20 Precautions Precautions Dizziness, Depression PT-OP-B Current Condition Start: 05/11/20 18:12 Freq: Status: Active Protocol: Document 05/25/20 12:46 LRN (Rec: 05/25/20 16:29 LRN [id number]) Current Condition History of Current Condition Onset Date 05/19/20 Current Complaints S/P L ISAIAH. History of Current Condition Pt returns to physical therapy after having a L posterior ISAIAH surgery. She was in the hospital 2.5 days and has been trying to do ex's at home. She is sleeping in a recliner chair because of L knee pain when lying in her bed. She is not able to straighten the L knee due to patellar pain. She rates her L lateral hip and anterior knee pain as 4/10 . Treatment Goals Patient/Caregiver Goals Pt goals: 1) Drive 2) Walk without an assistive device 3) Ambulate up/down stairs with normal gait pattern. 4) Sleep in a bed 5) Transfer without need of walker. 4) Bend over to pick out hand objects Prior Functional Status Baseline Function- ADL's Independent Baseline Function- Mobility Independent Baseline Function- Gait Limps with gait in evenings. Doesn't use an assistive device for gait. Baseline Function- Recreation/Hobbies Gardening by bending over at hips. Baseline Function- Other Stairs: 1 step at time leading with RLE, ascending/ descending, use of 1 rail. Slept in bed on back or L side . Current Functional Impairments (Reported) Functional Limitations- ADL's 1 step at time leading with LLE ascending/descending, use of railing. Functional Limitations- Mobility/Gait Ambulates with a FWW and step to gait. Functional Limitations- Recreation/ Not able to garden. Hobbies Functional Limitations- Other Not able to sleep in a bed due to L knee pain. Personal Factors Other Personal Factors That May Effect Lives with spouse and 2 dogs ( Therapy/Recovery small & big). Depression. PT-OP-C Subjective Start: 05/11/20 18:12 Freq: Status: Active Protocol: Document 06/15/20 09:47 LRN (Rec: 06/15/20 10:35 LRN [id number]) OP-PT Subjective Patient Comments Patient Comments 4 wks post op, no complaints. Put shoes on today. Only time pain is on incision of L hip when overdoing. Tender with sleeping on L side. Patient Questionnaires Lower Extremity Functional Scale LEFS Score 43 LEFS Impairment 40 to 59% Impaired (Score 32- 47) OP-PT Pain Assessment Location L knee Intensity 0 Scale Used Numeric (0 - 10) L lateral hip Pain Location Details L lateral hip Intensity 3 Scale Used Numeric (0 - 10) L hip and upper back Intensity 0 Scale Used Numeric (0 - 10) L groin Intensity 0 Scale Used Numeric (0 - 10) L medial thigh Intensity 0 Scale Used Numeric (0 - 10) PT-OP-E Functional Tests Start: 05/11/20 18:12 Freq: Status: Active Protocol: Document 06/15/20 09:47 LRN (Rec: 06/15/20 10:35 LRN [id number]) Functional Tests Timed Up and Go (TUG) Score 10.77 Comments No AD, no limp TUG Impairment Rating 0% Impaired (Score 10) PT-OP-G Mobility & Gait Start: 05/11/20 18:12 Freq: Status: Active Protocol: Document 05/13/20 08:16 LRN (Rec: 05/13/20 09:07 LRN [id number]) OP Mobility Evaluation Bed Mobility Supine to and from Sit Independent adhering to ISAIAH precautions. Transfers Sit to Stand Independent adhering to ISAIAH precautions. OP Gait Assessment Gait Gait Assistance Required: Independent Distance (Feet) 100 Able to Maintain Weight Bearing Status Yes During Gait Assistive Devices Assistive Device None,Straight Cane Gait Deviations General Gait Pattern Antalgic Comments Gait Comments Limps off L LE. Stair Climbing Evaluation Evaluation Level of Assist On Stairs Independent Devices Stair Climbing Assistive Devices Left Railing Technique/Endurance Stair Climbing Direction Ascend and Descend Stair Climbing Technique Step to Step Number of Steps Climbed 5 Stair Climbing Set # Repetitions (reps) 2 Comments Stair Climbing Comments Pt tendency is to go up/down with RLE PT-OP-H Neuro Start: 05/11/20 18:12 Freq: Status: Active Protocol: Document 05/25/20 12:46 LRN (Rec: 05/25/20 13:34 LRN [id number]) Vital Signs Pulse Start Pulse at Rest (bpm) 76 Blood Pressure Sitting Blood Pressure (90/60-120/80 mmHg) 140/80 H Blood Pressure Source Manual Cuff,Left Upper Extremity PT-OP-K Range of Motion Start: 05/11/20 18:12 Freq: Status: Active Protocol: Document 05/25/20 12:46 LRN (Rec: 05/25/20 13:34 LRN [id number]) Hip Goniometric Range of Motion Hip Right Active Hip ROM WFL Yes Testing Position Supine Flexion w/Knee Flexed 105 Extension 0 Left Active Hip ROM WFL No Flexion w/Knee Flexed 70 Extension 15 Knee Goniometric Range of Motion Knee Right Patient Position Supine Flexion Active (degrees) 135 Extension Active (degrees) 0 Left Knee ROM WFL Yes Patient Position Supine Flexion Active (degrees) 120 Extension Active (degrees) 20 Knee ROM Limitations Knee ROM Limitations Pain Comments L patellar knee pain. PT-OP-M Strength Start: 05/11/20 18:12 Freq: Status: Active Protocol: Document 06/15/20 09:47 LRN (Rec: 06/15/20 10:35 LRN [id number]) Hip Strength Hip Manual Muscle Testing Left Flexion (L2) 5 Normal Extension (S1) 5 Normal Abduction 4+ Good+ PT-OP-Q Treatments Start: 05/11/20 18:12 Freq: Status: Active Protocol: Document 06/15/20 09:47 LRN (Rec: 06/15/20 10:35 LRN [id number]) Therapeutic Exercises Supine Exercises L hip ER stretch Supine Exercise Name BKFO stretch with ankle crossing below opposite knee Reps/Minutes 60 Comments MMT taken. Stretch followed by 10x active stretch SLR Supine Exercise Name SLR Side left Reps/Minutes 10x 2 & 5x Comments MMT taken Prone Exercises Hip Ext Prone Exercise Name Hip Ext Side bilateral Reps/Minutes 2x Comments MMT taken Sidelying Exercises Bent Knee Hip AB Sidelying Exercise Name Bent Knee Hip AB Side left Reps/Minutes 20x Comments Pt required phys cuing for review Clamshell Sidelying Exercise Name Clamshell Side left Reps/Minutes 20x Comments Pt required much phy and v. cuing for performing ex correctly. L hip AB Sidelying Exercise Name L hip AB w/TA tightening Side left Reps/Minutes 10x 2 & 5x Comments MMT taken. Cuing throughout to limit rotation backward Sitting Exercises AA L hip ER stretch Sitting Exercise Name L hip ER stretch, assisting with gt belt at L ankle. Side left Reps/Minutes AAROM 10x Gait Training Gait Activity Stairs Description Ascend/Descend with and w/o 1 rail Level of Assistance Inde Treatment Focus normalizing gait Comments Normal ascending, slight lack of control on descent of R LE. Level Description Gait on level. Device Used None Level of Assistance None Distance/Duration 1' Treatment Focus Normal gait PT-OP-R Modalities Start: 05/11/20 18:12 Freq: Status: Active Protocol: Document 06/03/20 09:50 LRN (Rec: 06/03/20 10:33 LRN [id number]) Hot Pack/Cold Pack Treatment Cold Pack Location L hip Patient Position Supine Treatment Duration (minutes) 10 Comments Supine with LLE elevated for edema. PT-OP-T Assessment and Plan Start: 05/11/20 18:12 Freq: Status: Active Protocol: Document 06/15/20 09:47 LRN (Rec: 06/15/20 10:35 LRN [id number]) Physical Therapy Assessment Goals Six Impairment Mild Antalgic Gait Snf Goal (LTG) Pt will be able to ambulate with a normal gait pattern. LTG Duration 06/21/20 (06/15/20: MET GOAL) Five Impairment Pt not able to sleep in bed Short Term Goal (STG) Improve painfree L knee ext to 0- lacking 5 deg's. STG Duration 06/01/20 (06/03/20: MET GOAL) Ecology Teacher Goal (LTG) Pt will be able to sleep in her own bed with tolerable hip /knee pain. (06/03/20: Has slept in bed 2 nights comfortably). LTG Duration 06/11/20 (06/10/20: MET GOAL) Four Impairment Ascend/descend stairs with a step to gait. Short Term Goal (STG) Pt will be educated in proper step to gait for post- operative care following a posterior L ISAIAH. STG Duration 05/25/20 (05/13/21 MET GOAL) Ecology Teacher Goal (LTG) Pt will be able to ambulate up /down stairs with a reciprocal gait pattern with 1 railing. (06/15/20: Pt able to ascend/ descend with or without 1 rail , independently with normal gait pattern) LTG Duration 08/23/20 (06/15/20: MET GOAL) Three Impairment Antalgic gait. Short Term Goal (STG) Pt will be educated in safe and proper use of 4WW. STG Duration 05/25/20 (05/13/21 MET GOAL) Ecology Teacher Goal (LTG) Pt will be able to ambulate without the use of an assistive device safely. LTG Duration 08/23/20 (05/31/20: MET GOAL) Two Impairment Lacks proper knowledge of proper transfers post-op L posterior ISAIAH Short Term Goal (STG) Pt educated and independent with proper transfers appropriate for a post- operative L posterior ISAIAH. STG Duration 05/25/20 (05/13/21 MET GOAL) Ecology Teacher Goal (LTG) Pt will be able to recall 3/3 posterior ISAIAH precautions. LTG Duration 06/04/20 (05/31/20: MET GOAL) One Impairment Lacks appropriate HEP Short Term Goal (STG) Pt educated and independent with a self care program for a pre-operative L posterior ISAIAH . STG Duration 05/19/20 (05/25/20: MET GOAL) Snf Goal (LTG) Pt will be educated in a self care HEP for management of her L posterior ISAIAH. LTG Duration 08/23/20 (06/10/20: Progressing) Assessment Summary Assessment Slight weakness in the L hip on descent from stairs, probaby due to hip AB weakness . Decr mobilty and strength of Hip ER's. Physical Therapy Plan Frequency and Duration Frequency of Treatment 2x/Week Plan of Care Start Date 05/25/20 Plan of Care End Date 08/23/20 Next Visit Focus/Plan Next Note Type Treatment Note Next Visit Plan PN for MD on 06/28/20 (9 AM). F/U 1 week to assess hip strength in areas restricted due to ISAIAH precautions. Pt patsy be 6 wks post op at next PT visit.
--- NOTE | 2020-06-25 11:28 | PT.OTN ---
Current Diagnoses Unilateral primary osteoarthritis, unspecified hip (06/25/20) Muscle weakness (generalized) (06/25/20) Unsteadiness on feet (06/25/20) Other reduced mobility (06/25/20) Physical Therapy Treatment Note PT-OP-A Visit Information Start: 05/11/20 18:12 Freq: Status: Active Protocol: Document 06/25/20 10:47 LRN (Rec: 06/25/20 11:22 LRN [id number]) Out-Patient Physical Therapy Visit Information Visit Information Visit Type Treatment Note Visit Start Time 10:47 Visit Stop Time 11:18 Total Visit Minutes 29 Visit Number 8 Evaluation Information Evaluation Date 05/13/20 Precautions Precautions Dizziness, Depression PT-OP-B Current Condition Start: 05/11/20 18:12 Freq: Status: Active Protocol: Document 05/25/20 12:46 LRN (Rec: 05/25/20 16:29 LRN [id number]) Current Condition History of Current Condition Onset Date 05/19/20 Current Complaints S/P L ISAIAH. History of Current Condition Pt returns to physical therapy after having a L posterior ISAIAH surgery. She was in the hospital 2.5 days and has been trying to do ex's at home. She is sleeping in a recliner chair because of L knee pain when lying in her bed. She is not able to straighten the L knee due to patellar pain. She rates her L lateral hip and anterior knee pain as 4/10 . Treatment Goals Patient/Caregiver Goals Pt goals: 1) Drive 2) Walk without an assistive device 3) Ambulate up/down stairs with normal gait pattern. 4) Sleep in a bed 5) Transfer without need of walker. 4) Bend over to pickler helper objects Prior Functional Status Baseline Function- ADL's Independent Baseline Function- Mobility Independent Baseline Function- Gait Limps with gait in evenings. Doesn't use an assistive device for gait. Baseline Function- Recreation/Hobbies Gardening by bending over at hips. Baseline Function- Other Stairs: 1 step at time leading with RLE, ascending/ descending, use of 1 rail. Slept in bed on back or L side . Current Functional Impairments (Reported) Functional Limitations- ADL's 1 step at time leading with LLE ascending/descending, use of railing. Functional Limitations- Mobility/Gait Ambulates with a FWW and step to gait. Functional Limitations- Recreation/ Not able to garden. Hobbies Functional Limitations- Other Not able to sleep in a bed due to L knee pain. Personal Factors Other Personal Factors That May Effect Lives with spouse and 2 dogs ( Therapy/Recovery small & big). Depression. PT-OP-C Subjective Start: 05/11/20 18:12 Freq: Status: Active Protocol: Document 06/25/20 10:47 LRN (Rec: 06/25/20 11:22 LRN [id number]) OP-PT Subjective Patient Comments Patient Comments Having sharp jabs in the L knee while walking sometimes. Mostly when getting up from a chair or rolling over in bed. Pain in the L hip is about a 1/10 sometimes. Patient Questionnaires Lower Extremity Functional Scale LEFS Score 64 LEFS Impairment 1 to 19% Impaired (Score 63-79 ) PT-OP-E Functional Tests Start: 05/11/20 18:12 Freq: Status: Active Protocol: Document 06/15/20 09:47 LRN (Rec: 06/15/20 10:35 LRN [id number]) Functional Tests Timed Up and Go (TUG) Score 10.77 Comments No AD, no limp TUG Impairment Rating 0% Impaired (Score 10) PT-OP-G Mobility & Gait Start: 05/11/20 18:12 Freq: Status: Active Protocol: Document 05/13/20 08:16 LRN (Rec: 05/13/20 09:07 LRN [id number]) OP Mobility Evaluation Bed Mobility Supine to and from Sit Independent adhering to ISAIAH precautions. Transfers Sit to Stand Independent adhering to ISAIAH precautions. OP Gait Assessment Gait Gait Assistance Required: Independent Distance (Feet) 100 Able to Maintain Weight Bearing Status Yes During Gait Assistive Devices Assistive Device None,Straight Cane Gait Deviations General Gait Pattern Antalgic Comments Gait Comments Limps off L LE. Stair Climbing Evaluation Evaluation Level of Assist On Stairs Independent Devices Stair Climbing Assistive Devices Left Railing Technique/Endurance Stair Climbing Direction Ascend and Descend Stair Climbing Technique Step to Step Number of Steps Climbed 5 Stair Climbing Set # Repetitions (reps) 2 Comments Stair Climbing Comments Pt tendency is to go up/down with RLE PT-OP-H Neuro Start: 05/11/20 18:12 Freq: Status: Active Protocol: Document 05/25/20 12:46 LRN (Rec: 05/25/20 13:34 LRN [id number]) Vital Signs Pulse Start Pulse at Rest (bpm) 76 Blood Pressure Sitting Blood Pressure (90/60-120/80 mmHg) 140/80 H Blood Pressure Source Manual Cuff,Left Upper Extremity PT-OP-K Range of Motion Start: 05/11/20 18:12 Freq: Status: Active Protocol: Document 05/25/20 12:46 LRN (Rec: 05/25/20 13:34 LRN [id number]) Hip Goniometric Range of Motion Hip Right Active Hip ROM WFL Yes Testing Position Supine Flexion w/Knee Flexed 105 Extension 0 Left Active Hip ROM WFL No Flexion w/Knee Flexed 70 Extension 15 Knee Goniometric Range of Motion Knee Right Patient Position Supine Flexion Active (degrees) 135 Extension Active (degrees) 0 Left Knee ROM WFL Yes Patient Position Supine Flexion Active (degrees) 120 Extension Active (degrees) 20 Knee ROM Limitations Knee ROM Limitations Pain Comments L patellar knee pain. PT-OP-M Strength Start: 05/11/20 18:12 Freq: Status: Active Protocol: Document 06/25/20 10:47 LRN (Rec: 06/25/20 11:22 LRN [id number]) Hip Strength Hip Manual Muscle Testing Left Flexion (L2) 5 Normal Extension (S1) 5 Normal Abduction 5 Normal External Rotation 2+ Poor+ PT-OP-Q Treatments Start: 05/11/20 18:12 Freq: Status: Active Protocol: Document 06/25/20 10:47 LRN (Rec: 06/25/20 11:22 LRN [id number]) Therapeutic Exercises Supine Exercises L hip ER stretch Supine Exercise Name BKFO stretch with ankle crossing below opposite knee Reps/Minutes 60 Comments MMT taken. Stretch followed by 10x active stretch SLR Supine Exercise Name SLR Side left Reps/Minutes 10x 3 Comments MMT taken Bridging Supine Exercise Name Bridging Reps/Minutes 10 rep x 3 Prone Exercises Hip Ext Prone Exercise Name Hip Ext Side bilateral Reps/Minutes 10x Comments MMT taken Sidelying Exercises Clamshell Sidelying Exercise Name Clamshell Side left Reps/Minutes 30x Comments Pt required phy and v. cuing for performing ex correctly. L hip AB Sidelying Exercise Name L hip AB w/TA tightening Side left Reps/Minutes 5x Comments MMT taken. Cuing throughout to limit rotation backward Sitting Exercises ARROM L hip ER Sitting Exercise Name Hip ER Side left Resistance Lev 2 T-Band Reps/Minutes 10x Comments I/S for proper movement, held T-Band for appropriate resistance. AA L hip ER stretch Sitting Exercise Name L hip ER stretch, assisting with gt belt at L ankle. Side left Reps/Minutes AAROM 10x Self-Care/Home Management Treatment Education Patient Education Home Exercise Program Activities Self-Care/Home Management Activities Verbal review of HEP and new ex of hip ER with and without assist/resitance. Issued Lev 2 T-Band. Discussed pt wgt shift of COG over feet with gait when precautions of movement is cleared. PT-OP-R Modalities Start: 05/11/20 18:12 Freq: Status: Active Protocol: Document 06/03/20 09:50 LRN (Rec: 06/03/20 10:33 LRN [id number]) Hot Pack/Cold Pack Treatment Cold Pack Location L hip Patient Position Supine Treatment Duration (minutes) 10 Comments Supine with LLE elevated for edema. PT-OP-T Assessment and Plan Start: 05/11/20 18:12 Freq: Status: Active Protocol: Document 06/25/20 10:47 LRN (Rec: 06/25/20 11:22 LRN [id number]) Physical Therapy Assessment Goals Six Impairment Mild Antalgic Gait Mgmt Analyst Goal (LTG) Pt will be able to ambulate with a normal gait pattern. LTG Duration 06/21/20 (06/15/20: MET GOAL) Five Impairment Pt not able to sleep in bed Short Term Goal (STG) Improve painfree L knee ext to 0- lacking 5 deg's. STG Duration 06/01/20 (06/03/20: MET GOAL) Prison Goal (LTG) Pt will be able to sleep in her own bed with tolerable hip /knee pain. (06/03/20: Has slept in bed 2 nights comfortably). LTG Duration 06/11/20 (06/10/20: MET GOAL) Four Impairment Ascend/descend stairs with a step to gait. Short Term Goal (STG) Pt will be educated in proper step to gait for post- operative care following a posterior L ISAIAH. STG Duration 05/25/20 (05/13/21 MET GOAL) Mgmt Analyst Goal (LTG) Pt will be able to ambulate up /down stairs with a reciprocal gait pattern with 1 railing. (06/15/20: Pt able to ascend/ descend with or without 1 rail , independently with normal gait pattern) LTG Duration 08/23/20 (06/15/20: MET GOAL) Three Impairment Antalgic gait. Short Term Goal (STG) Pt will be educated in safe and proper use of 4WW. STG Duration 05/25/20 (05/13/21 MET GOAL) Prison Goal (LTG) Pt will be able to ambulate without the use of an assistive device safely. LTG Duration 08/23/20 (05/31/20: MET GOAL) Two Impairment Lacks proper knowledge of proper transfers post-op L posterior ISAIAH Short Term Goal (STG) Pt educated and independent with proper transfers appropriate for a post- operative L posterior ISAIAH. STG Duration 05/25/20 (05/13/21 MET GOAL) Mgmt Analyst Goal (LTG) Pt will be able to recall 3/3 posterior ISAIAH precautions. LTG Duration 06/04/20 (05/31/20: MET GOAL) One Impairment Lacks appropriate HEP Short Term Goal (STG) Pt educated and independent with a self care program for a pre-operative L posterior ISAIAH . STG Duration 05/19/20 (05/25/20: MET GOAL) Mgmt Analyst Goal (LTG) Pt will be educated in a self care HEP for management of her L posterior ISAIAH. LTG Duration 08/23/20 (06/25/20: MET GOAL) Physical Therapy Plan Discharge Physical Therapy Discharge Reasons Goals Met Discharge Comments Pt did extremely well with therapy. She is still within her ISAIAH precautions; therefore full correction of her gait it not possible. If further therapy is needed for gait dysfunction we would be more than happy to work with this pleasant individual again. Thank you for your referral.
--- NOTE | 2020-06-25 11:36 | PT.OPDS ---
Current Diagnoses Unilateral primary osteoarthritis, unspecified hip (06/25/20) Muscle weakness (generalized) (06/25/20) Unsteadiness on feet (06/25/20) Other reduced mobility (06/25/20) Visit Care Team Role Provider Type Mahnaz Marshall DO Primary Care Provider Physician Specialty: Family Practice Address: [address] [place] [address], [place], [address] Email: [email or web address] David Dumas MD Attending Provider Physician Referring Provider Specialty: Orthopedic Surgery Address: [address] [place] [address], [id number] Email: [email or web address] Number Visit Number 8 Discharge Summary PT-OP-B Current Condition Start: 05/11/20 18:12 Freq: Status: Active Protocol: Document 05/25/20 12:46 LRN (Rec: 05/25/20 16:29 LRN [id number]) Current Condition History of Current Condition Onset Date 05/19/20 Current Complaints S/P L ISAIAH. History of Current Condition Pt returns to physical therapy after having a L posterior ISAIAH surgery. She was in the hospital 2.5 days and has been trying to do ex's at home. She is sleeping in a recliner chair because of L knee pain when lying in her bed. She is not able to straighten the L knee due to patellar pain. She rates her L lateral hip and anterior knee pain as 4/10 . Treatment Goals Patient/Caregiver Goals Pt goals: 1) Drive 2) Walk without an assistive device 3) Ambulate up/down stairs with normal gait pattern. 4) Sleep in a bed 5) Transfer without need of walker. 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 Doesn't use an assistive device for gait. Baseline Function- Recreation/Hobbies Gardening by bending over at hips. Baseline Function- Other Stairs: 1 step at time leading with RLE, ascending/ descending, use of 1 rail. Slept in bed on back or L side . Current Functional Impairments (Reported) Functional Limitations- ADL's 1 step at time leading with LLE ascending/descending, use of railing. Functional Limitations- Mobility/Gait Ambulates with a FWW and step to gait. Functional Limitations- Recreation/ Not able to garden. Hobbies Functional Limitations- Other Not able to sleep in a bed due to L knee pain. Personal Factors Other Personal Factors That May Effect Lives with spouse and 2 dogs ( Therapy/Recovery small & big). Depression. PT-OP-C Subjective Start: 05/11/20 18:12 Freq: Status: Active Protocol: Document 06/25/20 10:47 LRN (Rec: 06/25/20 11:22 LRN [id number]) OP-PT Subjective Patient Comments Patient Comments Having sharp jabs in the L knee while walking sometimes. Mostly when getting up from a chair or rolling over in bed. Pain in the L hip is about a 1/10 sometimes. Patient Questionnaires Lower Extremity Functional Scale LEFS Score 64 LEFS Impairment 1 to 19% Impaired (Score 63-79 ) PT-OP-E Functional Tests Start: 05/11/20 18:12 Freq: Status: Active Protocol: Document 06/15/20 09:47 LRN (Rec: 06/15/20 10:35 LRN [id number]) Functional Tests Timed Up and Go (TUG) Score 10.77 Comments No AD, no limp TUG Impairment Rating 0% Impaired (Score 10) PT-OP-G Mobility & Gait Start: 05/11/20 18:12 Freq: Status: Active Protocol: Document 05/13/20 08:16 LRN (Rec: 05/13/20 09:07 LRN [id number]) OP Mobility Evaluation Bed Mobility Supine to and from Sit Independent adhering to ISAIAH precautions. Transfers Sit to Stand Independent adhering to ISAIAH precautions. OP Gait Assessment Gait Gait Assistance Required: Independent Distance (Feet) 100 Able to Maintain Weight Bearing Status Yes During Gait Assistive Devices Assistive Device None,Straight Cane Gait Deviations General Gait Pattern Antalgic Comments Gait Comments Limps off L LE. Stair Climbing Evaluation Evaluation Level of Assist On Stairs Independent Devices Stair Climbing Assistive Devices Left Railing Technique/Endurance Stair Climbing Direction Ascend and Descend Stair Climbing Technique Step to Step Number of Steps Climbed 5 Stair Climbing Set # Repetitions (reps) 2 Comments Stair Climbing Comments Pt tendency is to go up/down with RLE PT-OP-H Neuro Start: 05/11/20 18:12 Freq: Status: Active Protocol: Document 05/25/20 12:46 LRN (Rec: 05/25/20 13:34 LRN [id number]) Vital Signs Pulse Start Pulse at Rest (bpm) 76 Blood Pressure Sitting Blood Pressure (90/60-120/80 mmHg) 140/80 H Blood Pressure Source Manual Cuff,Left Upper Extremity PT-OP-K Range of Motion Start: 05/11/20 18:12 Freq: Status: Active Protocol: Document 05/25/20 12:46 LRN (Rec: 05/25/20 13:34 LRN [id number]) Hip Goniometric Range of Motion Hip Right Active Hip ROM WFL Yes Testing Position Supine Flexion w/Knee Flexed 105 Extension 0 Left Active Hip ROM WFL No Flexion w/Knee Flexed 70 Extension 15 Knee Goniometric Range of Motion Knee Right Patient Position Supine Flexion Active (degrees) 135 Extension Active (degrees) 0 Left Knee ROM WFL Yes Patient Position Supine Flexion Active (degrees) 120 Extension Active (degrees) 20 Knee ROM Limitations Knee ROM Limitations Pain Comments L patellar knee pain. PT-OP-M Strength Start: 05/11/20 18:12 Freq: Status: Active Protocol: Document 06/25/20 10:47 LRN (Rec: 06/25/20 11:22 LRN [id number]) Hip Strength Hip Manual Muscle Testing Left Flexion (L2) 5 Normal Extension (S1) 5 Normal Abduction 5 Normal External Rotation 2+ Poor+ PT-OP-T Assessment and Plan Start: 05/11/20 18:12 Freq: Status: Active Protocol: Document 06/25/20 10:47 LRN (Rec: 06/25/20 11:22 LRN [id number]) Physical Therapy Assessment Goals Six Impairment Mild Antalgic Gait Shelter Goal (LTG) Pt will be able to ambulate with a normal gait pattern. LTG Duration 06/21/20 (06/15/20: MET GOAL) Five Impairment Pt not able to sleep in bed Short Term Goal (STG) Improve painfree L knee ext to 0- lacking 5 deg's. STG Duration 06/01/20 (06/03/20: MET GOAL) Study Specialist Goal (LTG) Pt will be able to sleep in her own bed with tolerable hip /knee pain. (06/03/20: Has slept in bed 2 nights comfortably). LTG Duration 06/11/20 (06/10/20: MET GOAL) Four Impairment Ascend/descend stairs with a step to gait. Short Term Goal (STG) Pt will be educated in proper step to gait for post- operative care following a posterior L ISAIAH. STG Duration 05/25/20 (05/13/21 MET GOAL) Shelter Goal (LTG) Pt will be able to ambulate up /down stairs with a reciprocal gait pattern with 1 railing. (06/15/20: Pt able to ascend/ descend with or without 1 rail , independently with normal gait pattern) LTG Duration 08/23/20 (06/15/20: MET GOAL) Three Impairment Antalgic gait. Short Term Goal (STG) Pt will be educated in safe and proper use of 4WW. STG Duration 05/25/20 (05/13/21 MET GOAL) Shelter Goal (LTG) Pt will be able to ambulate without the use of an assistive device safely. LTG Duration 08/23/20 (05/31/20: MET GOAL) Two Impairment Lacks proper knowledge of proper transfers post-op L posterior ISAIAH Short Term Goal (STG) Pt educated and independent with proper transfers appropriate for a post- operative L posterior ISAIAH. STG Duration 05/25/20 (05/13/21 MET GOAL) Study Specialist Goal (LTG) Pt will be able to recall 3/3 posterior ISAIAH precautions. LTG Duration 06/04/20 (05/31/20: MET GOAL) One Impairment Lacks appropriate HEP Short Term Goal (STG) Pt educated and independent with a self care program for a pre-operative L posterior ISAIAH . STG Duration 05/19/20 (05/25/20: MET GOAL) Study Specialist Goal (LTG) Pt will be educated in a self care HEP for management of her L posterior ISAIAH. LTG Duration 08/23/20 (06/25/20: MET GOAL) Assessment Summary Assessment Pt has very mild gait deviation from lack of hip AD mobility due to adhering to ISAIAH precautions. Her hip strength is normal except with ER. Hip AD and IR were not assessed due to ISAIAH precautions. Pt is ready to to be discharged to an independent HEP. Pt had reported occasional L knee pain with transfers and bed mobility but did not present with the pain during therapy today. Pt encouraged to talk to MD on her next follow up visit for her hip. Physical Therapy Plan Discharge Physical Therapy Discharge Reasons Goals Met Discharge Comments Pt did extremely well with therapy. She is still within her ISAIAH precautions; therefore full correction of her gait it not possible. If further therapy is needed for gait dysfunction we would be more than happy to work with this pleasant individual again. Thank you for your referral.
== END 2020-06-30 08:48 | disposition home or self-care (01) ==
LOC: PHYS 10:30
PROVIDERS: PCP Family Medicine; Referring Provider Orthopaedic Surgery; Visit Provider Orthopaedic Surgery
DX: M16.10 Unilateral primary osteoarthritis, unspecified hip (principal); M62.81 Muscle weakness (generalized); R26.81 Unsteadiness on feet; Z74.09 Other reduced mobility
CPT/HCPCS: 97110; 97140; 97161; 97162; 97530; 97535

== ENCOUNTER → 2020-09-03 17:25 | Outpatient (CLI) | payer MEDICARE, OTHER, SELFPAY ==
[2020-05-19 11:35] VITALS: BMI 33.7
[2020-05-25 12:46] VITALS: PULSE 76
--- NOTE | 2020-09-03 17:28 | DI.MG.S_ITS ---
BILATERAL DIGITAL SCREENING MAMMOGRAM 3D/2D WITH CAD: 09/03/2020 CLINICAL: Routine screening. Family history of breast cancer. Comparison is made to exams dated: 06/18/2017 mammogram - [facility], 06/02/2014 mammogram - [facility], and 11/28/2011 mammogram - [facility]. There are scattered fibroglandular elements in both breasts. Current study was also evaluated with a Computer Aided Detection (CAD) system. No significant masses, calcifications, or other findings are seen in either breast. There has been no significant interval change. IMPRESSION: NEGATIVE There is no mammographic evidence of malignancy. A 1 year screening mammogram is recommended. This exam was interpreted at Station ID: [id number]. NOTE: For mammograms, a report in lay terms will be sent to the patient. Approximately 15% of breast malignancies will not be visualized mammographically. In the management of a palpable breast mass, a negative mammogram must not discourage biopsy of a clinically suspicious lesion. Electronically Signed By: Melchor neely/flower:09/06/2020 07:39:01 letter sent: Normal Exam ACR BI-RADS Category 1: Negative [id number]
== END ==
PROVIDERS: PCP Family Medicine; Referring Provider Family Medicine; Visit Provider Family Medicine
DX: Z12.31 Encounter for screening mammogram for malignant neoplasm of breast (principal); Z80.3 Family history of malignant neoplasm of breast
CPT/HCPCS: 77063; 77067

== ENCOUNTER → 2021-02-04 10:38 | Outpatient (CLI) | payer MEDICARE, OTHER, SELFPAY ==
[2020-05-25 12:46] VITALS: PULSE 76
[2021-01-05 14:48] VITALS: PULSE 76; BMI 33.7
[2021-02-04] MEDS: COVID-19 VACC #1, MRNA(MOD) 100 MCG/0.5 ML VIAL IM (10:45)
== END ==
PROVIDERS: PCP Family Medicine; Visit Provider Internal Medicine
DX: Z23 Encounter for immunization (principal)
CPT/HCPCS: 0011A; 91301

== ENCOUNTER → 2021-02-28 10:46 | Outpatient (CLI) | payer MEDICARE, OTHER, SELFPAY ==
[2020-05-25 12:46] VITALS: PULSE 76
[2021-01-05 14:48] VITALS: PULSE 76; BMI 33.7
[2021-02-28 11:52] LABS: Add Manual Diff / Slide Review NO; Basophils Absolute Auto 100 /uL (0-100); Eosinophils Absolute Auto 200 /uL (0-450); Hematocrit 36.2 % (36-46); Hemoglobin 11.7 g/dL (12.0-16.0); Lymphocytes Absolute Auto 2200 /uL (1100-4500); Lymphocytes Percent Auto 37.7 % (25-40); Mean Corpuscular HGB Conc 32.3 % (30-36); Mean Corpuscular Hemoglobin 27.1 PG (26-34); Mean Corpuscular Volume 83.9 fL (80-100); Monocytes Absolute Auto 400 /uL (0-900); Monocytes Percent Auto 6.7 % (3-14); Neutrophils Absolute Auto 2900 /uL (1500-7000); Neutrophils Percent Auto 50.6 % (50-75); Platelet Count 356 X10^3/uL (150-400); Red Blood Cell Count 4.32 X10^6/uL (4.0-5.2); Red Cell Distribution Width 14.2 % (11.6-14.8); White Blood Cell Count 5.8 X10^3/uL (4.5-11.0)
[2021-02-28 11:55] LABS: Alanine Aminotransferase 47 IU/L (<35); Albumin 4.8 g/dL (3.5-5.0); Albumin Globulin Ratio 1.3 (1.0-2.8); Alkaline Phosphatase 113 U/L (38-126); Aspartate Aminotransferase 49 IU/L (14-36); Bilirubin Total 0.6 mg/dL (0.2-1.3); Blood Urea Nitrogen 15 mg/dL (7-17); Calcium 10.2 mg/dL (8.4-10.2); Carbon Dioxide 27 mmol/L (22-32); Chloride 100 mmol/L (98-107); Cholesterol 217 mg/dL (140-199); Estimated Glomerular Filt Rate 59.6 mL/min (>60); Globulin 3.6 g/dL (1.7-4.1); Glucose 115 mg/dL (80-110); HDL Cholesterol 58 mg/dL (40-60); HEMOLYSIS < 15 (0-50); LDL Cholesterol Calculated 143 mg/dL (<100); Potassium 4.1 mmol/L (3.4-5.1); Sodium 138 mmol/L (137-145); Total Protein 8.4 g/dL (6.3-8.2); Triglycerides 80 mg/dL (35-150)
[2021-02-28 12:30] LABS: Ferritin 85 ng/mL (11-264)
[2021-03-01 15:08] LABS: Fecal Immunochemical Test Negative (Negative)
== END ==
PROVIDERS: PCP Family Medicine; Referring Provider Family Medicine; Visit Provider Family Medicine
DX: G25.81 Restless legs syndrome (principal); D64.9 Anemia, unspecified; E66.9 Obesity, unspecified; Z13.220 Encounter for screening for lipoid disorders; Z12.11 Encounter for screening for malignant neoplasm of colon
CPT/HCPCS: 36415; 80053; 80061; 82274; 82728; 85025

== ENCOUNTER → 2021-03-02 10:08 | Outpatient (CLI) | payer MEDICARE, OTHER, SELFPAY ==
[2020-05-25 12:46] VITALS: PULSE 76
[2021-01-05 14:48] VITALS: PULSE 76; BMI 33.7
[2021-03-02] MEDS: COVID-19 VACC #2, MRNA(MOD) 100 MCG/0.5 ML VIAL IM (10:14)
== END ==
PROVIDERS: PCP Family Medicine; Visit Provider Internal Medicine
DX: Z23 Encounter for immunization (principal)
CPT/HCPCS: 0012A; 91301